=== PATIENT | male | born 1960 | race Caucasian/White ===

== ENCOUNTER 2023-12-25 18:00 | Emergency (ER) | payer SELFPAY ==
[2023-12-25 18:01] VITALS: BMI 25.4
[2023-12-25 18:22] VITALS: BP 187/110
[2023-12-25 18:26] VITALS: BP 171/105
[2023-12-25 18:30] VITALS: BP 171/105
[2023-12-25 18:51] LABS: % Basophils 0.4 % (0-2); % Eosinophils 1.4 % (0-6); % Immature Granulocytes 0.4 % (0-0.5); % Monocytes 9.4 % (1.7-9.3); % Neutrophils 78.4 % (42.2-75.2); Absolute Eosinophils 0.1 10^3/uL (0-0.7); Absolute Lymphocytes 0.8 10^3/uL (1.2-3.4); Absolute Monocytes 0.8 10^3/uL (0.1-0.6); Absolute Neutrophils 6.6 10^3/uL (1.4-6.5); Hematocrit 37.9 % (39.0-52.0); Hemoglobin 13.5 g/dL (13.0-18.0); Mean Corp Hgb Conc. 35.6 g/dL (33.0-37.0); Mean Corpuscular Hgb 30.8 pg (27.0-31.0); Mean Corpuscular Volume 86.3 fL (80.0-94.0); Mean Platelet Volume 8.8 fL (7.4-10.4); Nucleated Red Blood Cells % 0 % (-); Platelet Count 248 10^3/uL (130-400); Red Blood Cell Count 4.39 10^6/uL (4.70-6.10); Red Cell Dist. Width 13.4 % (11.5-14.5); White Blood Cell Count 8.3 10^3/uL (4.8-10.8)
[2023-12-25 19:00] VITALS: BP 171/97
[2023-12-25 19:04] LABS: ALT (SGPT) < 10 U/L (0-50); AST (SGOT) 20 U/L (17-59); Albumin 4.4 g/dl (3.5-5.0); Alkaline Phosphatase 73 U/L (38-126); Blood Urea Nitrogen 14 mg/dl (9-20); Calcium 9.8 mg/dl (8.4-10.2); Carbon Dioxide 23 mmol/L (22-30); Chloride 106 mmol/L (98-107); Estimated Creatinine Clearance 105 ml/min; Glucose 103 mg/dl (70-99); Potassium 3.8 mmol/L (3.5-5.1); Sodium 138 mmol/L (135-145); eGFR > 60.00
--- NOTE | 2023-12-25 19:15 | ED.GENMED ---
History of Present Illness
General
Chief Complaint: Failure to Thrive
Source: patient and ambulance crew
Exam Limitations: none
Time Seen by Provider: 12/25/23 19:00
Nursing documentation reviewed up to this point in time: agreed with
Travel History
Have you had any contact with someone who has COVID-19?: No
Do you have any symptoms of coronavirus? Fever > 100 degrees, chills, cough, shortness of breath, sore throat, loss of taste or smell, muscle aches, or headache?: No
History of Present Illness
History of Present Illness:
63 yo male presents to the emergency department c/o an episode of explosive diarrhea. He is concerned his girlfriend gave him something to cause the diarrhea. He has had muscle aches and spasms for the past month.
Past History
Past History
ED Past Medical History: Arrthythmia (PAF), HTN, Other (Parkinson's disease) and Other (chronic back pain)
ED Past Surgical History: Orthopedic ([id number] fusion, right shoulder rotator cuff repair June 2018)
Patient has exhibited threatening behavior?: No
Social History
Tobacco: Non-smoker
Alcohol: None
Drug: None
Personal:
Living: alone
Employment: Employed
Family History
Family History: Hypertension and Other (Father with pancreatic cancer mother with Parkinson's)
Review of Systems
Review of Systems
Allergies reviewed?: Yes
All Other Systems: Not applicable
Constitutional: Reports no symptoms; Denies fever
EENT: Reports no symptoms
Respiratory: Reports no symptoms
Cardiac: Reports no symptoms
ABD/GI: Reports diarrhea; Denies abdominal pain or vomiting
: Reports no symptoms
Musculoskeletal: Reports muscle pain
Skin: Reports no symptoms
Neurological: Reports no symptoms
Endocrine: Reports no symptoms
Hematologic/Lymphatic: Reports no symptoms
Psychiatric: Reports no symptoms
Phy Exam
Physical Exam
Physical Exam:
Physical Exam
General: no apparent distress, afebrile
Neck: supple. no meningeal signs. normal posterior pharynx
Heart: s1/s2 regular rate and rhythm, no murmur. equal radial
pulses.
HEENT: Pupils equal round reactive to light, EOMI
Lungs: no acute respiratory distress. clear bilaterally
Abdomen: normal bowel sounds. not tender. no CVAT
Neuro: alert and oriented. no focal neurological deficits cranial nerves II through XII intact
Skin: no rash
Psychiatric: well kept. interactive and cooperative
Extremities: no edema. no calf tenderness. negative homans. good distal pulses
Course
Orders/Labs/Results
Orders:
Orders
12/25/23 18:44
Complete Blood Count/With Diff Urgent
Comprehensive Metabolic Panel Urgent
Abnormal Lab Results
12/25/23
18:44
RBC 4.39 L 10^6/uL
(4.70-6.10)
Hct 37.9 L %
(39.0-52.0)
Absolute Neuts (auto) 6.6 H 10^3/uL
(1.4-6.5)
Absolute Lymphs (auto) 0.8 L 10^3/uL
(1.2-3.4)
Absolute Monos (auto) 0.8 H 10^3/uL
(0.1-0.6)
Neutrophils % 78.4 H %
(42.2-75.2)
Lymphocytes % 10.0 L %
(20.5-51.1)
Monocytes % 9.4 H %
(1.7-9.3)
Glucose 103 H mg/dl
(70-99)
12/25/23 18:44
12/25/23 18:44
Vital Signs
Initial and Last Documented VS:
Initial Vital Signs
Pulse Resp BP
75 22 187/110
12/25/23 18:22 12/25/23 18:22 12/25/23 18:22
Last Documented Vital Signs
Pulse Resp BP Pulse Ox
71 18 171/97 95
12/25/23 19:15 12/25/23 19:15 12/25/23 19:00 12/25/23 18:26
MDM/Problems Addressed
Differential Diagnosis Includes:
infectious diarrhea, electrolyte disturbance
MDM/Problems Addressed:
63-year-old male with diarrhea, at baseline from Parkinson's. Vital signs stable. Stable for discharge. Follow-up with primary care and GI.
Chronic conditions affecting care: Neurological disorder (Parkinson's)
Acute Exacerbation and/or Progression of Chronic Illness: Neurological disorder (Parkinson's)
*Pulse Oximetry
Patient hypoxic: no
*EKG
Interpreted by ED Provider?: NA
*Telecommunications Support Interpretation
Rate: Telecommunications Support- N/A
*Critical Care Note
Total Time (30-74mins, 75-104mins- exclusive of procedures): Not Applicable
Data Reviewed
Review of Other/Old Records Reveals: Labs
Source: records (Prior kidney function normal from 10/11/2022)
Patient Management
Social determinants of health affecting care: Living situation
Escalation/DeEscalation of care consider admission/obs:
Admit not indicated
ED Attending Note
-
Portions of this chart may have been created with voice recognition software.� Occasional wrong word or��sound alike� substitutions may have occurred due to the inherent limitations of voice recognition software.
Discharge Plan
Departure
Patient Disposition: Home (Routine Discharge)
Date of Disposition: 12/25/23
Time of Disposition: 19:56
Patient with high blood pressure during this ER visit?: Yes
Condition: Good
Discharge Problem:
Diarrhea, HTN (hypertension)
Instructions: Diarrhea, Adult ED, BLOOD PRESSURE
Prescriptions:
No Action
carbidopa-levodopa 50-200 mg tablet extended release
1 tab PO DAILY@0000
carbidopa-levodopa 25-100 mg tablet
3 tab PO TID@0600,0900,1200
carbidopa-levodopa 25-100 mg tablet
3 tab PO TID@1500,1800,2100
pramipexole 0.75 mg tablet
0.75 mg PO TID@0000,0600,1500
acetaminophen 325 mg Tablet
650 mg PO Q4HPRN PRN (Reason: mild pain/MARIE/temp> 100.4F) Qty: 10 0RF
sotalol 80 mg Tablet
80 mg PO BID Qty: 60 0RF
Referrals:
Marilee Summers MD [Active] - Call in 1-3 days for appt
Loco Stratton MD [Family Provider] - Call in 1-3 days for appt
Interventions
Interventions:
*Risk Screen - Suicide Last Done: 12/25/23 18:32
*General Assessment Last Done: 12/25/23 18:32
*Neglect/Abuse Screening Last Done: 12/25/23 18:32
ED- Fall Risk Assessment Last Done: 12/25/23 19:18
*ED COVID-19 Vaccine History Last Done: 12/25/23 21:13
*Nursing Disposition Last Done: 12/25/23 21:13
Discharge Date and Time
Discharge Date/Time: 12/25/23 21:16
Print Language: DJIBOUTIAN
== END 2023-12-25 21:16 | disposition home or self-care (01) ==
LOC: EMR 18:00
PROVIDERS: Emergency Medicine; EMERGENCY PHYSICIAN Emergency Medicine; FAMILY PHYSICIAN Family Medicine
DX: R19.7 Diarrhea, unspecified (principal); I10 Essential (primary) hypertension; I48.0 Paroxysmal atrial fibrillation; G20.A1 Parkinson's disease without dyskinesia, without mention of fluctuations; G89.29 Other chronic pain; Z82.49 Family history of ischemic heart disease and other diseases of the circulatory system
CPT/HCPCS: 99283; 80053; 85025

== ENCOUNTER 2025-02-10 22:29 | Emergency (ER) | payer OTHER, SELFPAY ==
[2025-02-10 22:30] VITALS: BP 168/111
--- NOTE | 2025-02-11 00:33 | EDRN ---
Pt continuing to refuse care and to be seen at this time by ED provider. Pt assisted with calling [employer]. Upon [employer] arrival, pt wheeled out to car and informed needs to be able to independently get into the car since he is going back to his facility.
Pt unable to stand up from wheelchair and get into the car. Due to safety of pt and situation, pt brought back into waiting room to be seen. pulmonologist/intensivist notified.
--- NOTE | 2025-02-11 03:46 | ED.GENMED ---
History of Present Illness
General
Chief Complaint: Gait Dysfunction
Source: patient
Exam Limitations: none
Time Seen by Provider: 02/11/25 03:39
History of Present Illness
History of Present Illness:
See MDM
Past History
Past History
ED Past Medical History: Arrthythmia (PAF), HTN, Other (Parkinson's disease) and Other (chronic back pain)
ED Past Surgical History: Orthopedic ([id number] fusion, right shoulder rotator cuff repair June 2018)
Patient has exhibited threatening behavior?: No
Social History
Tobacco: Non-smoker
Alcohol: None
Drug: None
Personal:
Living: alone
Employment: Employed
Family History
Family History: Hypertension and Other (Father with pancreatic cancer mother with Parkinson's)
Phy Exam
Physical Exam
Physical Exam:
See MDM
Course
Vital Signs
Initial and Last Documented VS:
Initial Vital Signs
Temp Pulse Resp BP Pulse Ox
99.2 F 102 20 168/111 98
02/10/25 22:30 02/10/25 22:30 02/10/25 22:30 02/10/25 22:30 02/10/25 22:30
Last Documented Vital Signs
Temp Pulse Resp BP Pulse Ox
99.2 F 85 26 168/111 96
02/10/25 22:30 02/11/25 03:30 02/11/25 03:30 02/10/25 22:30 02/11/25 03:47
MDM/Problems Addressed
Differential Diagnosis Includes:
Note:
CHIEF COMPLAINT(S)
Weakness and inability to stand.
HISTORY OF PRESENT ILLNESS
The patient is a 64-year-old male with a history of Parkinsons disease who was found outside a pizza place exhibiting shaking. EMS was called, and the patient was brought to the emergency department. He was previously cleared to go home but was
unable to get into an [employer] due to weakness, as he could not stand independently. Upon arrival in the emergency department, he was found to be in a deep sleep and was non-responsive initially. Attempts to wake him were made, and he was very
soft-spoken when responding. There is no report of pain or other symptoms elicited during the interaction.
Patient is refusing any interventions such as imaging, urinalysis or lab work
CHRONIC MEDICAL CONDITIONS SIGNIFICANTLY AFFECTING CARE
Chronic conditions affecting care: Parkinsons disease.
PHYSICAL EXAM
General: Well appearing and non-toxic. No evidence of injury
HEENT: protecting airway
Neck: appears supple
CV: No evidence of cyanosis
Resp: No accessory muscle use
Abd: Non-distended
Extremities: No deformities
Neuro: alert. Initially deeply asleep and non-responsive. Later, awake and very soft-spoken.
Psych: Normal affect
Skin: Intact
PLAN
Observation and consideration for follow-up if weakness persists or other symptoms develop.
DIFFERENTIAL DIAGNOSIS
The Differential Diagnosis includes, in no particular order and is not limited to:
- Parkinsons disease exacerbation
- Orthostatic hypotension
- Urinary tract infection
- Dehydration
- Electrolyte imbalance
- Sedation or intoxication
- Stroke or transient ischemic attack
- Hypoglycemia
- Infection such as pneumonia
- Medication side effect or non-compliance
CARE-UPDATE
02/11/25 - 05:17
The patient is increasingly alert and expresses a desire to be discharged, indicating comfort with returning home. Patient consistently refuses additional testing and reaffirms feeling ready and comfortable with going home.
Disposition:
SUMMARY OF ENCOUNTER
The patient, a 64-year-old male with a history of Parkinsons disease, was seen in the emergency department due to weakness and inability to stand, initially found outside a pizza place exhibiting shaking. Upon arrival, he was in a deep sleep and
non-responsive but later became awake and soft-spoken. The main concern was a possible Parkinsons disease flare, and he declined further testing, expressing comfort in going home.
DISPOSITION
The patient was discharged home after he expressed capability for decision-making and declined further testing.
ASSESSMENT
Suspected Parkinsons disease exacerbation with no acute intervention required at this time.
PLAN
Observation and consideration for follow-up if weakness persists or other symptoms develop.
MEDICAL DECISION MAKING
1. Number & Complexity of Problems: Chronic conditions affecting care include Parkinsons disease. Differential diagnoses considered include Parkinsons disease exacerbation, orthostatic hypotension, dehydration, and infection among others.
2. Risk: Consideration of admission/observation was made due to complexity/risk. However, outpatient management is appropriate based on reassuring work-up, stable vitals, symptom control, and follow-up reliability.
PATHOLOGIES TO CONSIDER
Stroke or transient ischemic attack, electrolyte imbalance, medication side effect, or non-compliance.
*Pulse Oximetry
SaO2: 96
Oxygen Mode of Delivery: Room air
Patient hypoxic: no
*Critical Care Note
Total Time (30-74mins, 75-104mins- exclusive of procedures): Not Applicable
ED Attending Note
-
Portions of this chart may have been created with voice recognition software.� Occasional wrong word or��sound alike� substitutions may have occurred due to the inherent limitations of voice recognition software.
Discharge Plan
Departure
Patient Disposition: Home (Routine Discharge)
Date of Disposition: 02/11/25
Time of Disposition: 05:18
Patient with high blood pressure during this ER visit?: Yes
Discharge Problem:
Parkinson's disease
Prescriptions:
No Action
carbidopa-levodopa 50-200 mg tablet extended release
1 tab PO DAILY@0000
carbidopa-levodopa 25-100 mg tablet
3 tab PO TID@0600,0900,1200
carbidopa-levodopa 25-100 mg tablet
3 tab PO TID@1500,1800,2100
pramipexole 0.75 mg tablet
0.75 mg PO TID@0000,0600,1500
acetaminophen 325 mg Tablet
650 mg PO Q4HPRN PRN (Reason: mild pain/MARIE/temp> 100.4F) Qty: 10 0RF
sotalol 80 mg Tablet
80 mg PO BID Qty: 60 0RF
Referrals:
UNKNOWN - PT DOES,NOT KNOW [Family Provider]
Activity Restrictions/Additional Instructions:
Please return for any worsening symptoms.
You may return at any time if you have further concerns.
Please follow up with your doctor at the first available appointment, preferably this week.
Thank you for choosing [facility].
Interventions
Interventions:
*Risk Screen - Suicide Last Done: 02/10/25 22:30
*General Assessment Last Done: 02/10/25 22:30
*Neglect/Abuse Screening Last Done: 02/10/25 22:30
*ED COVID-19 Vaccine History Last Done: 02/10/25 22:30
ED-Musculoskeletal Assessment Last Done: 02/11/25 03:33
ED- Neurological Assessment Last Done: 02/11/25 03:33
ED Swallowing Screen Last Done: 02/11/25 03:33
Discharge Date and Time
Print Language: MOLDOVAN
== END 2025-02-11 05:53 | disposition home or self-care (01) ==
LOC: EMR 22:29
PROVIDERS: EMERGENCY PHYSICIAN Student in an Organized Health Care Education/Training Program
DX: G20.A1 Parkinson's disease without dyskinesia, without mention of fluctuations (principal); I10 Essential (primary) hypertension
CPT/HCPCS: 99283

== ENCOUNTER 2025-06-22 22:46 | Inpatient (IN) | payer OTHER, SELFPAY ==
[2025-06-22 18:47] VITALS: BP 116/90; BMI 27.1
[2025-06-22 18:48] VITALS: BP 116/90
[2025-06-22 19:00] VITALS: BP 136/95
[2025-06-22 19:45] LABS: Hematocrit 41.5 % (39.0-52.0); Hemoglobin 13.6 g/dL (13.0-18.0); Mean Corp Hgb Conc. 32.8 g/dL (33.0-37.0); Mean Corpuscular Volume 91.6 fL (80.0-94.0); Nucleated Red Blood Cells % 0 % (-); Platelet Count 307 10^3/uL (130-400); Red Cell Dist. Width 13.5 % (11.5-14.5)
[2025-06-22 19:47] LABS: Urine Character Clear (Clear)
[2025-06-22] MEDS: NSS 1000 IV ×2 (19:47→21:00)
[2025-06-22 19:57] LABS: Urine Squamous Cell 0-2 /LPF (Few)
[2025-06-22 19:58] LABS: Urine Red Blood Cell 0-2 /HPF (0-2)
[2025-06-22 20:00] VITALS: BP 123/102
[2025-06-22 20:08] LABS: ALT (SGPT) 11 U/L (0-50); AST (SGOT) 74 U/L (17-59); Albumin 3.3 g/dl (3.5-5.0); Alkaline Phosphatase 78 U/L (38-126); Blood Urea Nitrogen 39 mg/dl (9-20); Calcium 8.5 mg/dl (8.4-10.2); Carbon Dioxide 32 mmol/L (22-30); Chloride 100 mmol/L (98-107); Estimated Creatinine Clearance 70 ml/min; Glucose 138 mg/dl (70-99); Potassium 3.6 mmol/L (3.5-5.1); Sodium 139 mmol/L (135-145); Total Protein 6.2 g/dl (6.3-8.2); eGFR > 60.00
--- NOTE | 2025-06-22 20:51 | ED.GENMED ---
History of Present Illness
General
Chief Complaint: Change in Mental Status
Source: patient
Time Seen by Provider: 06/22/25 19:12
History of Present Illness
History of Present Illness:
Note:
CHIEF COMPLAINT(S)
Shivering and altered mental status.
HISTORY OF PRESENT ILLNESS
The patient is a 64-year-old male with a past medical history of Parkinsons disease. His friends last checked on him on Sunday, at which time he reported feeling cold and shivering, leading him to lie down on the bathroom floor. He has been in
this position since Sunday, and today is Sunday, which is when his friends found him.
Upon arrival at the hospital, EMS noted that the patient was hypoxic, but he appeared stable after being administered two liters of oxygen. The patients alertness fluctuates�he opens his eyes, is alert, but does not respond to questions and does not
follow commands. There is severe skin breakdown with necrotic areas on several body parts due to prolonged immobility, including the right maxillary region, the left sub-xyphoid area, right lower chest wall, sacral area, and knees. There is also a
presence of stool from a large sacral wound.
PAST MEDICAL AND SURGICAL HISTORY
The patient has a confirmed history of Parkinsons disease.
PHYSICAL EXAM
General: Alert, no acute distress, but does not respond to questions.
Skin: Significant skin breakdown with necrosis in the right maxillary region, left sub-xyphoid area, right lower chest wall, both knees, and a large sacral area.
Eyes, Ears, Nose, Mouth, and Throat: Not specified in detail, but alert with eyes open.
Cardiovascular: Heart rate regular at 80 beats per minute. Blood pressure measured at 136/37.
Respiratory: Non-labored respirations, oxygen saturation improved with supplemental oxygen.
Neurological: Does not follow commands for neurologic assessment. Limbs are somewhat rigid, consistent with a history of Parkinson�s disease.
Gastrointestinal: Presence of stool stemming from sacral wound.
PROBLEM LIST
Acute Problems:
- Altered mental status
- Hypoxia
- Skin breakdown with necrosis multiple sites
Chronic Problems:
- Parkinson�s disease
PLAN
- Monitor vital signs closely.
- Obtain a rectal temperature.
- Assess and manage skin breakdown and necrotic areas.
- Continue supplemental oxygen as needed.
- Consult neurology for Parkinsons disease management and assess rigidity.
- Consider wound care consultation.
DIFFERENTIAL DIAGNOSIS
The Differential Diagnosis includes, in no particular order and is not limited to:
- Sepsis secondary to necrotic skin lesions
- Parkinson�s disease complications
- Urinary tract infection
- Pneumonia
- Stroke
- Delirium secondary to infection or metabolic imbalances
- Dehydration or electrolyte imbalance
- Hypothermia from prolonged exposure to a cold surface
- Hypoglycemia
- Medication side effects
CARE-UPDATE
06/22/25 - 19:29
The patient has a history of Parkinsons disease, atrial fibrillation, hypertension, and bilateral knee replacements. The discharge summary from June 2020 indicates that the patient was documented as DNR at that time. Additionally, the medication
regimen included carbidopa/levodopa and sotalol.
EKG
My independent EKG interpretation is:
- Rhythm: Normal
- Heart Rate: 81 bpm
- Aspen: Normal
- Intervals: Normal
- ST Segment/T Wave: No acute ischemic changes
Disposition:
SUMMARY OF ENCOUNTER
The patient is a 64-year-old male with a history of Parkinsons disease, presenting after being found on the ground with altered mental status. Upon evaluation, the patient has multiple skin lesions and a chronic sacral wound, along with other wounds
on the face, chest, knees, and upper back. Initial labs show mild rhabdomyolysis with a creatine phosphokinase (CPK) level of 1,295. Despite mild encephalopathy evidenced by volume loss on CT scan, vital signs are hemodynamically stable. A
urinalysis shows 1+ leukocyte esterase, 1+ blood, and many bacteria suggestive of a potential urinary tract infection. The patient�s temperature is slightly elevated at 99�F. Intravenous antibiotics were administered and blood cultures were sent to
address possible infections.
DISPOSITION
Admit.
ASSESSMENT
-Multiple skin lesions with possible infection.
-Mild rhabdomyolysis.
-Volume loss shown on CT indicating atrophy, potentially related to Parkinson�s and aging.
-Suspected urinary tract infection with bacterial presence in urinalysis.
-Potential encephalopathy related to metabolic imbalance or infection.
EMERGENCY TREATMENTS ADMINISTERED
Initiated intravenous antibiotics to cover for potential infections.
INDEPENDENT REVIEW OF LABS AND INTERPRETATION OF TESTS
My independent review of CPK shows mild elevation at 1,295 indicating rhabdomyolysis.
My independent review of basic metabolic panel indicates normal sodium, potassium, and glucose levels, and a normal creatinine.
My independent review of urinalysis shows 1+ leukocyte esterase, 1+ blood, and many bacteria, consistent with a potential urinary tract infection.
MEDICATION RECONCILIATION
Antibiotics administered intravenously for potential infections.
MEDICAL DECISION MAKING
-Number and Complexity of Problems Addressed: Chronic conditions affecting care include Parkinson�s disease, rhabdomyolysis, possible urinary tract infection, and skin lesions with potential sepsis. Differential diagnosis considered included: sepsis
secondary to necrotic skin lesions, Parkinson�s disease complications, urinary tract infection, pneumonia, stroke, delirium secondary to infection or metabolic imbalances, dehydration or electrolyte imbalance, hypothermia from prolonged exposure to
a cold surface, hypoglycemia, and medication side effects.
-Data:
Category 1
My independent interpretation of CT scan shows diffuse cerebral and cerebellar volume loss, consistent with encephalopathy but without acute intracranial hemorrhage.
Category 2
Clinical information was obtained from an independent historian regarding the patients time on the ground and prior medical conditions.
-Risk:
The decision to admit the patient was based on the risk of complications and morbidity related to potential infections, rhabdomyolysis, and possible encephalopathy.
DIAGNOSIS
-Rhabdomyolysis (ICD-10: M62.82)
-Urinary tract infection (ICD-10: N39.0)
-Cerebral atrophy (ICD-10: G31.1)
-Skin lesions (ICD-10: L98.9)
-Parkinson�s disease (ICD-10: G20)
Past History
Past History
ED Past Medical History: Arrthythmia (PAF), HTN, Other (Parkinson's disease) and Other (chronic back pain)
ED Past Surgical History: Orthopedic ([id number] fusion, right shoulder rotator cuff repair June 2018)
Patient has exhibited threatening behavior?: No
Social History
Tobacco: Non-smoker
Alcohol: None
Drug: None
Personal:
Living: alone
Employment: Employed
Family History
Family History: Hypertension and Other (Father with pancreatic cancer mother with Parkinson's)
Phy Exam
Physical Exam
Physical Exam:
.
Course
Orders/Labs/Results
Orders:
Orders
06/22/25 19:13
Electrocardiogram (*1) Urgent
Reason for Study: Fatigue / Weakness
CT Head W/o Iv Contrast Urgent
Comment:
Reason For Exam: found down, possible fall
EKG- Treatment ONCE
06/22/25 19:28
CPK [Creatine Phosphokinase] Urgent
Complete Blood Count/With Diff Urgent
Comprehensive Metabolic Panel Urgent
06/22/25 19:29
Urinalysis Reflex To Culture Urgent
Date Specimen was Collected: 06/22/25
Time Specimen was Collected: 19:28
Urine Microscopic Reflex Cult Urgent
Urine Culture Urgent
ALESHA Source: U
Specimen Description:
Date Specimen was Collected: 06/22/25
Time Specimen was Collected: 19:28
06/22/25 19:44
Venous Blood Gas Urgent
%Oxygen/Room Air: RA
0.9% Sodium Chloride 1000 ml [Nss] 1,000 ml IV BOLUS
06/22/25 20:11
0.9% Sodium Chloride 1000 ml [Nss] 1,000 ml IV BOLUS
06/22/25 21:18
CefTRIAXone [Rocephin] 1,000 mg IV NOW STA
Vancomycin [Vancocin] 2,000 mg 0.9% Sodium Chloride 500 ml [Nss] 500 ml IV NOW
06/22/25 21:30
Lactic Acid Q4H
Comment: CANCEL 2nd LACTIC ACID IF 1st LACTIC ACID IS LESS THAN 2
Blood Culture Q30M
ALESHA Source: Blood/Venous
Specimen Description:
06/22/25 22:00
Blood Culture Q30M
ALESHA Source: Blood/Venous
Specimen Description:
06/23/25 01:30
Lactic Acid Q4H
Comment: CANCEL 2nd LACTIC ACID IF 1st LACTIC ACID IS LESS THAN 2
Abnormal Lab Results
06/22/25 06/22/25
19:28 19:29
WBC 14.4 H 10^3/uL
(4.8-10.8)
RBC 4.53 L 10^6/uL
(4.70-6.10)
MCHC 32.8 L g/dL
(33.0-37.0)
Abs Immat Gran (auto) 0.1 H 10^3/uL
(0-0.05)
Absolute Neuts (auto) 11.8 H 10^3/uL
(1.4-6.5)
Absolute Lymphs (auto) 0.7 L 10^3/uL
(1.2-3.4)
Absolute Monos (auto) 1.5 H 10^3/uL
(0.1-0.6)
Immature Gran % 0.8 H %
(0-0.5)
Neutrophils % 81.8 H %
(42.2-75.2)
Lymphocytes % 4.8 L %
(20.5-51.1)
Monocytes % 10.2 H %
(1.7-9.3)
Carbon Dioxide 32 H mmol/L
(22-30)
BUN 39 H mg/dl
(9-20)
Glucose 138 H mg/dl
(70-99)
Total Bilirubin 2.5 H mg/dl
(0.2-1.3)
AST 74 H U/L
(17-59)
Creatine Kinase 1295 H U/L
(55-170)
Total Protein 6.2 L g/dl
(6.3-8.2)
Albumin 3.3 L g/dl
(3.5-5.0)
Urine Ketones 2+ A
(Negative)
Ur Occult Blood Reflex 1+ A
(Negative)
Urine Urobilinogen 3+ A
(Neg - 1+)
Leukocyte Esterase Rfl 1+ A
(Negative)
Urine Bacteria (Reflex) Many A
(Negative)
Urine Albumin (Reflex) 2+ A
(Neg - Trace)
06/22/25 19:28
06/22/25 19:28
Vital Signs
Initial and Last Documented VS:
Initial Vital Signs
Temp Pulse Resp BP Pulse Ox
97.5 F 82 14 116/90 97
06/22/25 18:47 06/22/25 18:47 06/22/25 18:47 06/22/25 18:47 06/22/25 18:47
Last Documented Vital Signs
Temp Pulse Resp BP Pulse Ox
97.5 F 78 14 123/102 98
06/22/25 18:47 06/22/25 20:15 06/22/25 20:15 06/22/25 20:00 06/22/25 20:52
*Pulse Oximetry
SaO2: 98
Oxygen Mode of Delivery: Room air
Patient hypoxic: no
*Large Animal Husbandry Technician Interpretation
Rate: normal
Interpretation: normal
Rhythm: sinus
*Critical Care Note
Total Time (30-74mins, 75-104mins- exclusive of procedures): 45 minutes
Update Note
Update Note:
ED Attending Note
-
Portions of this chart may have been created with voice recognition software.� Occasional wrong word or��sound alike� substitutions may have occurred due to the inherent limitations of voice recognition software.
Discharge Plan
Departure
Patient Disposition: Admit
Date of Disposition: 06/22/25
Time of Disposition: 21:02
Admit to: Telemetry
Presentation/result/management discussed w/ accepting MD/DO: Hospitalist
Discharge Problem:
Rhabdomyolysis, Decubitus ulcer of sacral area, Parkinson's disease, Skin breakdown
Prescriptions:
No Action
carbidopa-levodopa 25-100 mg tablet
3 tab PO TID@0600,0900,1200
carbidopa-levodopa 25-100 mg tablet
3 tab PO TID@1500,1800,2100
hydralazine 25 mg Tablet
25 mg PO TIDPRN PRN (Reason: blood pressure)
losartan 25 mg Tablet
25 mg PO DAILY
metoprolol succinate [Toprol XL] 25 mg Tablet Extended Release 24 Hr
25 mg PO DAILY
Referrals:
Loco Lynch MD [Family Provider, Family Practice]
Interventions
Interventions:
*Risk Screen - Suicide Last Done: 06/22/25 18:47
*ED- Fall Risk Assessment Last Done: 06/22/25 18:47
*ED COVID-19 Vaccine History Last Done: 06/22/25 18:47
*ED Influenza Vaccine History Last Done: 06/22/25 18:47
ED- Neurological Assessment Last Done: 06/22/25 18:47
Discharge Date and Time
Print Language: MONGOLIAN
--- NOTE | 2025-06-22 22:19 | HPS.HSE ---
Family Physician
-
Family Physician: Loco Lynch
Chief Complaint
-
found down
History of Present Illness
64-year-old male past medical history of Parkinson's disease, frequent falls, hypertension, paroxysmal atrial fibrillation status post ablation, chronic back pain, presenting with being found down on the ground. His friends last checked on 2 days
ago at which time he was cold and shivering leading to him lying down on the bathroom floor. He has been in this position for the past 2 days and was found today by his friends.
He was noted to be hypoxic and started on 2 L oxygen. Patient's alertness has been fluctuating and he opens his eyes and is alert but does not respond to questions and does not follow commands. He has several skin breakdown areas all over his body
including right maxillary region, left subxiphoid area, right lower chest wall and sacral area and knees. He also has a large sacral wound.
Medical History
Past Medical History
Past Medical History: Reports Other (Parkinson's disease, frequent falls, hypertension, paroxysmal atrial fibrillation status post ablation, chronic back pain)
Past Surgical History: Reports None
Social History
Unable to obtain full social history at this time due to: Patient Non-verbal
Family History
Family History: Not pertinent
Allergies / Home Medications
Allergies reflects when Allergies were last updated in [facility].
Home Medications with original date entered in [facility]
Allergy/Medication List:
Allergies
Allergy/AdvReac Type Severity Reaction Status Date / Time
aspartame Allergy Afib Verified 12/25/23 18:26
Home Medications
carbidopa 25 mg-levodopa 100 mg tablet 3 tab PO TID@0600,0900,1200 Neurological Condition 06/30/22
carbidopa 25 mg-levodopa 100 mg tablet 3 tab PO TID@1500,1800,2100 Neurological Condition 06/30/22
hydralazine 25 mg tablet 25 mg PO TIDPRN PRN blood pressure 06/22/25
losartan 25 mg tablet 25 mg PO DAILY Blood Pressure 06/22/25
metoprolol succinate 25 mg tablet,extended release 24 hr (Toprol XL) 25 mg PO DAILY Heart Disease/Condition 06/22/25
Review of Systems
-
Unable to obtain full review of systems at this time due to: Patient Non-verbal
A 12 point ROS was completed and negative except as noted: No
Physical Exam
Vital Signs
Vital Signs
Temp Pulse Resp BP Pulse Ox
97.5 F 78 14 123/102 98
06/22/25 18:47 06/22/25 20:15 06/22/25 20:15 06/22/25 20:00 06/22/25 20:52
Physical Exam
General: Well Developed, Well Nourished and No Apparent Distress
HEENT: NormoCephalic, Moist mucous membranes and Atraumatic
Respiratory: Clear
Cardiac: S1/S2 and Regular Rhythm; No Murmur or Rub
GI: Soft, Non Tender, Non Distended and Normal Bowel Sounds; No Organomegaly
Rectal: Deferred by Provider
Musculoskeletal: No Clubbing, No Cyanosis and No Edema
Skin: No Rash
Neuro: Nonfocal/grossly intact
Laboratory Results
-
06/22/25 19:28
06/22/25 19:28
Laboratory Results
Total Bilirubin 2.5 mg/dl (0.2-1.3) H 06/22/25 19:28
AST 74 U/L (17-59) H 06/22/25 19:28
ALT 11 U/L (0-50) 06/22/25 19:28
Alkaline Phosphatase 78 U/L (38-126) 06/22/25 19:28
Data Reviewed
-
Lab Data: Labs Reviewed by me
Old Records: Reviewed
Impression/Plan
-
IMPRESSION:
PLAN:
# Mild acute rhabdomyolysis
-Leukocytosis
-CK 1300
- IV fluids
- Continue carbidopa levodopa
# Acute metabolic encephalopathy possibly from skin infection/wounds
-Slightly opens his eyes to sternal rubbing but does not follow commands
-CT head showed no acute abnormality
- Urinalysis abnormal
- Blood cultures pending
-VBG pending
# Significant skin breakdown over right maxillary region, left xiphoid area, right lower chest wall, sacral area and knees
# Sacral decubitus ulcer
- Vancomycin/zosyn empirically
- Wound care consulted
# Mild hypoxemia unclear etiology rule out pneumonia
-Desatted to 80% so placed on 2 L oxygen
- Check chest x-ray
- Check COVID and influenza
Parkinson's disease
Frequent falls
Essential hypertension
- Continue hydralazine, losartan when able
Paroxysmal atrial fibrillation status post ablation
- Continue metoprolol when able
Chronic back pain
Full code
DVT prophylaxis heparin
Regular diet when able
[2025-06-22] MEDS: ROCEPHIN 1000 MG IV (22:22)
[2025-06-22 22:26] LABS: Venous Blood Gas B.E. 2.6 mmol/L (-4 to +4); Venous Blood Gas O2 Sat % 91.2 %
[2025-06-22] MEDS: VANCOCIN 540 MG IV (22:42)
[2025-06-22 22:53] LABS: COVID-19 Antigen Negative (Negative)
[2025-06-22 23:00] VITALS: BP 128/92
[2025-06-23] VITALS (7 sets, daily range): BP systolic 110–137; BP diastolic 68–85; BMI 27.1
[2025-06-23] MEDS: NSS 1000 IV ×2 (00:59→11:55)
[2025-06-23] MEDS: OFIRMEV 100 IV ×3 (01:11→20:59)
[2025-06-23] MEDS: ZOSYN 50 IV ×3 (01:32→11:39)
--- NOTE | 2025-06-23 02:17 | PTCARENOTE ---
Pt admitted to rm 337-1 and was pulled over from stretcher to bed. Pt malodorous, pt cleaned w/ bathing wipes. Wounds noted on L upper back, L second toe, R nose, L heel, sacrum, b/l knees, chest, and R cheek. Preventative foams placed for b/l
elbows and L heel. Pt uncooperative but opening eyes to tactile stimuli and mumbling. Temp 102.2 axillary, pt packed w/ ice. [employer] notified, IV tylenol ordered (see OCT). +1 L pedal edema, trace R pedal edema, and +1 L elbow edema present. Placed on
tele #7, NSR. Legs elevated on pillow and pt made Q2T. Bed alarm placed for safety. Plan of care ongoing.
[2025-06-23 05:52] LABS: Hematocrit 36.6 % (39.0-52.0); Hemoglobin 11.4 g/dL (13.0-18.0); Mean Corp Hgb Conc. 31.1 g/dL (33.0-37.0); Mean Corpuscular Volume 93.8 fL (80.0-94.0); Nucleated Red Blood Cells % 0 % (-); Platelet Count 263 10^3/uL (130-400); Red Cell Dist. Width 13.6 % (11.5-14.5)
[2025-06-23 06:09] LABS: ALT (SGPT) 16 U/L (0-50); AST (SGOT) 60 U/L (17-59); Albumin 2.5 g/dl (3.5-5.0); Alkaline Phosphatase 62 U/L (38-126); Blood Urea Nitrogen 29 mg/dl (9-20); Calcium 8.0 mg/dl (8.4-10.2); Carbon Dioxide 26 mmol/L (22-30); Chloride 109 mmol/L (98-107); Estimated Creatinine Clearance 79 ml/min; Glucose 104 mg/dl (70-99); Potassium 3.3 mmol/L (3.5-5.1); Sodium 137 mmol/L (135-145); Total Protein 5.3 g/dl (6.3-8.2); eGFR > 60.00
--- NOTE | 2025-06-23 08:05 | PHA.VAN.IN ---
Assessment
- Assessment
Renal Function: Appears similar to baseline
Concomitant Antimicrobials: piperacillin/tazobactam
AUC Dosing Plan
- Dosing Variables
Dosing Weight (kg): 74
Dosing CrCl (ml/min): 79
Vd coefficient (L/kg): 0.7
- Empiric Dosing
Initial / Loading Dose: 2000mg - 06/22 22:42
Maintenance Regimen: Vanc 750mg Q12H starting at 1800
Estimated AUC (mcg*h/mL): 428
Estimated Peak (mcg*h/mL): 25.5
Estimated Trough (mcg/ml): 11.8
Estimated Half Life (H): 9.9
- Monitoring
No levels ordered at this time: follow BUN & SCR trend
Pharmacokinetics Vancomycin I
- -
Patient Age: 64
Patient Sex: Male
Vancomycin Day #: 1
Indication: Skin And Soft Tissue
Requesting Provider: Dr. Talavera
Pertinent Antimicrobial Allergies:
no pertinent antibiotic allergies
Height / Weight:
Height 5 ft 5 in
Actual Weight 74 kg
Pertinent Past Medical History: Parkinson's
- Vital Signs / Lab Results
Temp Pulse Resp BP Pulse Ox
99.8 F 69 16 130/78 98
06/23/25 07:59 06/23/25 07:59 06/23/25 07:59 06/23/25 07:59 06/23/25 07:59
Lab Results - Hematology
06/22/25 06/23/25
19:28 05:18
WBC 14.4 H 11.7 H
Lab Results - Chemistry
06/22/25 06/23/25
19:28 05:18
BUN 39 H 29 H
Creatinine 0.9 0.8
Estimated Creat Clear 70 79
Albumin 3.3 L 2.5 L
06/22/25
22:02
Lactic Acid 1.2
Lab Results - Urine
06/22/25
19:29
Urine Nitrite (Reflex) Negative
Leukocyte Esterase Rfl 1+ A
Urine WBC (Reflex) 3-5
Ur Squamous Epith Cells 0-2
Urine Bacteria (Reflex) Many A
Microbiology Results
06/22/25 22:28 Influenza Types A & B (JOSEF) - Final
Nasal Swab Negative for Influenza A & B, NAAT
Negative results must be combined with clinical observations
and patient history.
Nucleic Acid Amplification test (NAAT)performed on the
[employer] platform.
--- NOTE | 2025-06-23 08:55 | W.PN.HOSP.TC ---
Today's Communication/Plan
-
Antibiotics. Workup in progress.
Assessment / Plan
Assessment / Plan
Physical exam:
General: Acutely ill. Toxic appearance
HEENT: Normocephalic, Atraumatic and Dry Mucous Membranes
Respiratory: Clear to Auscultation; Negative Wheezes, Rales or Rhonchi
Cardiac: Regular Rhythm and S1/S2
GI: Soft, Nontender and Nondistended
Musculoskeletal: No joint effusions
Skin: Large sacral decubitus ulcer appears necrotic and infected, multiple other ulcers on his trunk, right maxillary region, left xiphoid area, right lower chest wall, and knees.
Neuro: Semi-obtunded, does not respond to verbal stimuli, does withdraw to painful stimuli
Psych: Lack of judgment and insight
A/P:
Febrile illness--> suspected sepsis present on admission with endorgan damage with hyperbilirubinemia (bilirubin at 2.5):
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
Blood cultures
ID consult
Plan for LP
General surgery consult for sacral ulcer evaluation--> plan for MRI sacral area
Continue broad-spectrum antibiotics but adjust to IV ceftriaxone vancomycin and ampicillin.
Add IV acyclovir
Continue IV fluids and keep n.p.o. until mental status improves. Speech therapy eval as well.
Discussed with friend over the phone (Ajay Christopher)-now trying to get in touch with any family members or POA if present but friend tells me that he is and he is stranged with his son who lives in [place].
Acute toxic-metabolic encephalopathy:
Likely multifactorial, infection, Parkinson's, and medications
Monitor mental status
Currently protecting airway but monitor respiratory status closely
Hypoxia:
Improved
Chest x-ray no acute chest pathology
Monitor respiratory status closely
Hypokalemia:
Replete IV and trend
Rhabdomyolysis:
On IV fluid
CPK 1295 upon admission
Will trend in a.m.
Paroxysmal A-fib:
Not on anticoagulation prior to admission
History of ablation in the past
On rate control with beta-blockers as outpatient
Will add IV Lopressor as needed for heart rate sustained more than 120s
Advanced Parkinson's disease:
Neurology consult
Started on rotigotine transdermal until able to take oral meds
DVT prophylaxis:
SCDs
CODE STATUS:
Full code
Total time spent on today's encounter was 57 minutes which included time spent in counseling the patient/family regarding diagnosis and treatment plan as listed above, goals of care, and symptom management. Case was discussed with nursing staff,
specialists, and care coordinators/case management. All labs and imaging personally reviewed by me. Remainder the time spent in detailed review of previous records, lab data, imaging, and other medical provider documentation.
Anticipated Discharge: > 48 hours
Subjective/Interval History
-
Date of Service: June 23, 2025
Patient encephalopathic. He is febrile, Tmax 102.2 Fahrenheit.
Objective Data
-
Labs:
Laboratory Results
06/23/25
05:18
WBC 11.7 H
Hgb 11.4 L
Hct 36.6 L
Plt Count 263
Sodium 137
Potassium 3.3 L
Chloride 109 H
Carbon Dioxide 26
BUN 29 H
Creatinine 0.8
Glucose 104 H
Calcium 8.0 L
Total Bilirubin 2.1 H
AST 60 H
ALT 16
Alkaline Phosphatase 62
Vital Signs:
Vital Signs
Temp Pulse Resp BP Pulse Ox
99.8 F 69 16 130/78 98
06/23/25 07:59 06/23/25 07:59 06/23/25 07:59 06/23/25 07:59 06/23/25 07:59
[2025-06-23] MEDS: HEPARIN 5000 UNITS SC (08:58)
--- NOTE | 2025-06-23 11:36 | CON.ID ---
Consultation
-
Date/Time Consultation Requested: 06/23/25 11:18
Date/Time Consultation Performed: 06/23/25 11:36
Requesting Provider: Dr Dick
Performing Provider: Dr Monterroso
Reason for Consultation: fever
Chief Complaint / Past History
Chief Complaint
fever
History of Present Illness
Mr Liao is a 64 year old male with history of Parkinson's disease with frequent falls who presented here yesterday after being found down. History is obtained by chart review. Friends report that they checked on him two days ago, he was cold and
shivering and laid down on the bathroom floor. He was found by his friends two days later in the same position and EMS was called
Since arrival here he has been febrile to 102.2, bp stable, pulse 60-80, RR in the teens, wbc initially 14.4 now 11.7, hgb 13.6, plt 307, Left shift was present, sodium 139, cr 0.9, lactic acid 1.2, t bili 2.5, ast 74, alt 11, alk phos 78, CK 1295,
UA 3-5 wbc/hpf, covid ag negative, CXR: no evidence of pneumonia, CT head without IV contrast no evidence of ICH, influenza negative, blood cultures x2 in progress, urine culture pending.
Past History
Additional Past Medical History:
(Parkinson's disease, frequent falls, hypertension, paroxysmal atrial fibrillation status post ablation, chronic back pain)
Past Surgical History: None
Allergy History:
aspartame Allergy (Verified 12/25/23 18:26)
Afib
Medications Reviewed: Yes
Social History
Employment: Other (unable to obtain social history)
Family History
Family History: Not Pertinent
Review of Systems
Review of Systems
unable to obtain due to the condition of the patient
Vital Signs
Temp Pulse Resp BP Pulse Ox
100.4 F H 73 18 130/77 99
06/23/25 10:55 06/23/25 10:55 06/23/25 10:55 06/23/25 10:55 06/23/25 10:55
Physical Exam
Physical Exam
Constitutional: No Acute Distress
Cardiovascular: Regular Rate and S1/S2; Negative Murmur or Rub
Pulmonary: Clear and Symmetric; Negative Wheezes, Rales or Rhonchi
Gastrointestinal: Soft, Non Tender, Non Distended and Normal Bowel Sounds
Skin: Warm and Dry; Negative Rash or Jaundice
Wound: Other (Eschars: right maxillary, left subxiphoid, right lower chest wall, bilateral knees; there is a deep tissue injury over the sacral region with strong odor)
Neurological: Other (stiff neck, nonresponsive); Negative Awake or Alert
Lab / Diagnostic Study Results
06/23/25 05:18
06/23/25 05:18
Abs Immat Gran (auto) 0.1 10^3/uL (0-0.05) H 06/23/25 05:18
Absolute Neuts (auto) 9.4 10^3/uL (1.4-6.5) H 06/23/25 05:18
Absolute Lymphs (auto) 0.7 10^3/uL (1.2-3.4) L 06/23/25 05:18
Absolute Monos (auto) 1.1 10^3/uL (0.1-0.6) H 06/23/25 05:18
Absolute Basos (auto) 0.0 10^3/uL (0-0.2) 06/23/25 05:18
Immature Gran % 0.8 % (0-0.5) H 06/23/25 05:18
Neutrophils % 80.4 % (42.2-75.2) H 06/23/25 05:18
Lymphocytes % 6.1 % (20.5-51.1) L 06/23/25 05:18
Monocytes % 9.2 % (1.7-9.3) 06/23/25 05:18
Eosinophils % 3.2 % (0-6) 06/23/25 05:18
Basophils % 0.3 % (0-2) 06/23/25 05:18
Lactic Acid 1.2 mmol/L (0.7-2.0) 06/22/25 22:02
Ur Squamous Epith Cells 0-2 /LPF (Few) 06/22/25 19:29
Microbiology Results
Micro:
06/22/25 22:28 Influenza Types A & B (JOSEF) - Final
Nasal Swab Negative for Influenza A & B, NAAT
Negative results must be combined with clinical observations
and patient history.
Nucleic Acid Amplification test (NAAT)performed on the
[employer] platform.
06/22/25 22:02 Blood Culture - Pending
Blood/Venous
06/22/25 22:02 Blood Culture - Pending
Blood/Venous
06/22/25 19:29 Urine Culture - Pending
Urine
Assessment / Plan
Fever
Rhabdomyolysis
Encephalopathy - suspect toxic metabolic
- blood cultures x2 are in progress
- ua bland, urine culture is in progress
- covid and influenza screens are negative
- obtain LP with cell count, culture, protein, glucose - if there is significant leukocytosis then will add on meningitis panel
- continue vancomycin, add ceftriaxone, ampicillin, acycylovir for present; hold zosyn for present
- agree with surgical consult to debride the sacral wound
--- NOTE | 2025-06-23 11:50 | CON.NEURO4 ---
Addendum entered and electronically signed by Allen Brown MD 06/23/25 13:33:
Studies independently reviewed.
I have personally examined the patient. I reviewed and agree with the VALUE STREAM LEADER's Note.
My addenda:
Not awake, not alert, not interactive. No acute distress.
Speech mute.
Follows no requests. No tremor. Does not withdraw from painful stimuli or respond to verbal stimulation.
Extra-ocular movements slow rolling eye movements, negative doll's eyes. Eyes respond to bright light slowly bilaterally
Face appears symmetric. Hearing unable to assess
No spontaneous limb movements
Neck: full ROM.
Chest: no dyspnea
Heart: no JVD
Ext: (-) Clubbing, (-) Cyanosis, (-) Edema
IMPRESSIONS/RECOMMENDATIONS:
Abrupt onset of change in mental status. Likely that the patient became frozen with Parkinson's disease and subsequently was unable to move. Current status is most likely secondary to inadequate dopamine levels and possible underlying toxic
metabolic encephalopathy.
Initiate rotigotine patch 1 mg with increase over time
Attempt to obtain records from [facility]
Consider restart of palliative care, consult case management
We will follow LP results
Will continue to follow patient.
Original Note:
Consultation - Neurology 4
-
CONSULTING PHYSICIAN: Allen Brown MD
REFERRING PHYSICIAN: Hospitalists/Dr. Dick
DICTATED BY: LARRY Camara
DATE/TIME OF REQUEST: 06/23/25
DATE/TIME OF CONSULTATION: 06/23/25
Reason for Consultation: Encephalopathy
History of Present Illness:
This is a 64-year-old male who has presented to the hospital on 06/22/25 with report of chills and being found on the ground. Patient's friends report that three days ago on 06/20/25 the patient was reporting being cold and was shivering. They
checked on him again yesterday (06/22/25) and found him lying on his bathroom floor.. On EMS arrival he was hypoxic and somewhat alert but not answering questions or following commands. He was also noted to have several areas of skin
breakdown/pressure ulcers. CT head was obtained on arrival and is negative for any acute abnormalities. WBC count was 14.4 on arrival, CK 1295. Temperature was elevated to 102.2 overnight. Patient has remained minimally responsive prompting
Neurology evaluation. He is unable to participate in conversation and this information is obtained from medical records. He has advanced Parkinson's disease was was previously followed as an outpatient by Dr. Hernandez until 2022, it is unclear if he
still follows anywhere currently. He was encourage to get a deep brain stimulator in 2022 due to severity of his PD symptoms but he failed to complete the workup to undergo this procedure. He was also recently on palliative care but ultimately
discharged himself from their care.
Past Medical History: Parkinson's disease, paroxysmal Afib (s/p ablation, not on OAC), HTN, frequent falls, multiple concussions, insomnia, chronic back pain
Surgical History: Cardiac ablation, lumbar laminectomy/fusion, R shoulder arthroscopy, b/l knee replacement
Family History: Father- Parkinson's disease
Social History: No alcohol, tobacco, or illicit drug use.
Allergies: Aspartame.
Home Medications:
Review of Symptoms:
Per the HPI. I am unable to obtain a complete review of systems�because of patient's inability to provide history.
Physical Exam:
The patient is febrile, abdomen is nondistended, breathing is unlabored on oxygen via nasal cannula, skin is warm and dry, +3 BLE edema. Scattered wounds/scabbing.
Neurologic Examination:
The patient is unresponsive. He is unable to follow commands or answer questions appropriately. There is no verbal response. On cranial nerve assessment, pupils are 3 mm bilateral, round and reactive to light and accommodation. Gaze is midline, ANIL
visual mcconnell and EOMs. There is no apparent facial asymmetry. ANIL hearing. ANIL tongue. To pain, 0/5 in all extremities. No spontaneous movement. Increased tone in bilateral lower extremities. ANIL drift. No involuntary movement noted. Deep tendon
reflexes are 1+ bilateral upper and lower extremities and Babinski is absent bilaterally. ANIL sensation, double simultaneous, and coordination.
Lab Results: See below.
Neuro Imaging:
1. CT Head 06/22/25: No CT evidence for acute intracranial hemorrhage or transcortical infarct. Mild diffuse cerebral and cerebellar volume loss. Mild periventricular white matter leukoaraiosis in the frontal and parietal lobes
Differentials for the patient's presentation include:
1. Altered mental status; likely toxic metabolic encephalopathy in the setting of fever, rhabdomyolysis, and absence of receiving usual extensive dosing of carbidopa-levodopa.
2. Afib s/p ablation, not on anticoagulation.
Patient has the following risk factors for their symptoms: Advanced PD not getting medications, fever
Recommendations:
-Start rotigotine 1mg transdermal until usual home PD medications can be resumed.
-Infectious workup per ID.
-Goal normothermia.
-If patient fails to improve, will consider MRI brain imaging.
-Neurological checks.
-DVT prophylaxis.
Discussed patient care with: Dr. Brown, nursing staff
Vital Signs and Labs
-
Vital Signs and Labs:
Vital Signs
Temp Pulse Resp BP Pulse Ox
100.4 F H 73 18 130/77 99
06/23/25 10:55 06/23/25 10:55 06/23/25 10:55 06/23/25 10:55 06/23/25 10:55
Lab Results
06/23/25 05:18
06/23/25 05:18
Sodium 137 mmol/L (135-145) 06/23/25 05:18
Potassium 3.3 mmol/L (3.5-5.1) L 06/23/25 05:18
BUN 29 mg/dl (9-20) H 06/23/25 05:18
Glucose 104 mg/dl (70-99) H 06/23/25 05:18
Calcium 8.0 mg/dl (8.4-10.2) L 06/23/25 05:18
Medications
-
Active Medications
Generic Name Dose Route Start Last Admin
Trade Name Freq PRN Reason Stop Dose Admin
Heparin Sodium 5,000 units 06/23/25 08:00 06/23/25 08:58
Heparin 5,000 Units/Ml 1 Ml Vial SC 07/21/25 07:59 5,000 units
Q12 CECI Administration
Sodium Chloride 1,000 mls @ 100 mls/hr 06/23/25 00:39 06/23/25 11:55
Nss IV 1,000 mls
.Q10H CECI Administration
Piperacillin Sod/Tazobactam Sod 3.375 gram in 50 mls @ 100 mls/hr 06/23/25 01:00 06/23/25 11:39
Zosyn IV 50 mls
Q6 CECI Administration
Vancomycin HCl 750 mg in 150 mls @ 150 mls/hr 06/23/25 18:00
Vancocin IV
Q12H CECI
Protocol
Sodium Chloride 0 flush 06/23/25 01:00
Sodium Chloride 0.9% (Flush) Syringe IV 07/21/25 00:59
PER PROTOCOL CECI
Home Medications
�Medication �Instructions �Recorded
carbidopa 25 mg-levodopa 100 mg 3 tab PO TID@0600,0900,1200 06/30/22
tablet Neurological Condition
carbidopa 25 mg-levodopa 100 mg 3 tab PO TID@1500,1800,2100 06/30/22
tablet Neurological Condition
hydralazine 25 mg tablet 25 mg PO TIDPRN PRN blood pressure 06/22/25
losartan 25 mg tablet 25 mg PO DAILY Blood Pressure 06/22/25
metoprolol succinate 25 mg 25 mg PO DAILY Heart 06/22/25
tablet,extended release 24 hr Disease/Condition
(Toprol XL)
--- NOTE | 2025-06-23 12:55 | WOUNDNOTE ---
[facility] RN note: Patient admitted with Rhabdomyolysis, decubitus ulcer of sacrum.
See H&P for complete history.
PMH: The patient is a 64-year-old male with a past medical history of Parkinson's disease. His friends last checked on him on Sunday, at which time he reported feeling cold and shivering, leading him to lie down on the bathroom floor. He has been
in this position since Sunday, and today is Sunday, which is when his friends found him. Afib-ablation, HTN and ambulatory dysfunction.
Wound Location and type/assessment: Patient admitted with: multiple pressure injuries from lying on bathroom floor for a few days. Patient is unresponsive at this time. With assist of nurse Rubia, turned patient to sides. Sacrum with large DTI vs
Unstageable PI, foul odor and moderate drainage. L upper back abrasion with patch of weepy serous drainage. R cheek with unstageable PI. R chest with dry abrasion, black necrotic. L dorsal toes with few scattered dry scabs, suspect abrasions. B/L
knee with PI's, R unstageable with brown dry eschar. L knee with evolving DTI, shallow light maroon intact skin. R lateral heel with DTI, dark maroon, no drainage. L heel intact.
Appetite: NPO.
Pressure redistribution devices in place: Recommend Air mattress, turning schedule and pillow under calves.
Plan: Local wound care applied to Sacrum. Foams changed on heels. Applied Vaseline to R cheek and chest eschar. Discussed wounds with Dr. Dick, plan is for I&D and Surgical consult. Goals of care to be discussed with family.
Will confirm orders with hospitalist and updated nurse Barkley. Updated care plan and will follow as needed.
Note to case management of equipment requested for discharge: TBD.
Recommend follow up at wound care center upon discharge.
[2025-06-23] MEDS: ZOVIRAX INJECTION 264.8 MG IV ×2 (13:17→20:41)
--- NOTE | 2025-06-23 13:26 | CON.GS ---
Medical History
-
Chief Complaint: Found down
History of Present Illness:
Patient is a 64 yo M with a PMH of Parkinson's, HTN, A-fib (no anticoagulation), and chronic back pain who presents with fevers, frequent falls and being found down at home. Patient is unable to provide a history at this time. Low normal reaction
with the encounter. Reported to be found at home by friends. Has multiple wounds of various healing stages and at various sites across his body. He was found to have a sacral decubitus ulcer prompting consultation to general surgery.
Past Medical History
Past Medical History: Arrhythmias (A-fib), HTN and Psychiatric (Parkinson's disease)
Past Surgical History: None
Social History
Tobacco: Other (Unable to obtain)
Alcohol: Other (Unable to obtain)
Drug: Other (Unable to obtain from)
Family History
Family History: Unable to Obtain
Allergies / Home Medications
Allergy/AdvReac Type Severity Reaction Status Date / Time
aspartame Allergy Afib Verified 12/25/23 18:26
�Medication �Instructions �Recorded �Confirmed �Type
carbidopa 25 mg-levodopa 100 mg 3 tab PO TID@0600,0900,1200 06/30/22 06/22/25 History
tablet Neurological Condition
carbidopa 25 mg-levodopa 100 mg 3 tab PO TID@1500,1800,2100 06/30/22 06/22/25 History
tablet Neurological Condition
hydralazine 25 mg tablet 25 mg PO TIDPRN PRN blood pressure 06/22/25 06/22/25 History
losartan 25 mg tablet 25 mg PO DAILY Blood Pressure 06/22/25 06/22/25 History
metoprolol succinate 25 mg 25 mg PO DAILY Heart 06/22/25 06/22/25 History
tablet,extended release 24 hr Disease/Condition
(Toprol XL)
Review of Systems
-
A 10 point review of systems was completed, and was negative except as per HPI.
Physical Exam
Vital Signs
Temp Pulse Resp BP Pulse Ox
100.4 F H 73 18 130/77 99
06/23/25 10:55 06/23/25 10:55 06/23/25 10:55 06/23/25 10:55 06/23/25 10:55
06/22/25 06/23/25 06/24/25
06:59 06:59 06:59
Actual Weight 74 kg
Body Mass Index (BMI) 27.1
Lab Results
06/23/25 05:18
06/23/25 05:18
WBC 11.7 10^3/uL (4.8-10.8) H 06/23/25 05:18
Hgb 11.4 g/dL (13.0-18.0) L 06/23/25 05:18
Hct 36.6 % (39.0-52.0) L 06/23/25 05:18
Plt Count 263 10^3/uL (130-400) 06/23/25 05:18
Abs Immat Gran (auto) 0.1 10^3/uL (0-0.05) H 06/23/25 05:18
Neutrophils % 80.4 % (42.2-75.2) H 06/23/25 05:18
Physical Exam
General: No Apparent Distress
Respiratory: Non Labored Respirations
Cardiac: Irregular Rhythm
GI: Soft, Non Tender and Non Distended
Skin: Other (Scattered wounds across his entire body of various healing stages, large 8 x 10 cm sacral decubitus ulcer, dry, reactive surrounding blanching erythema, no significant palpable fluctuance, no drainage, minimal tenderness)
Neuro: Sedated
Data Reviewed
-
Radiology: Image Personally Visualized and interpreted and Report Reviewed by me
CT Scan: Report Reviewed by me
Labs: Labs Reviewed by me
Old Records: Reviewed
Assessment / Plan
-
Patient is a 64 yo M p/w sepsis of unknown origin after being found down at home
Differential remains broad; work-up on-going. Large sacral decubitus ulcer with overlying dry gangrene and necrosis of the skin and subcutaneous tissues, unable to fully stage. No clearly palpable fluctuance underlying. Unable to have a
meaningful conversation with the patient. No clear DPOA on file. Per report he has been previously on hospice and was removed by his (since ). No immediate family members on file, only listed contacts are friends. Will need to
obtain legal documentation of a DPOA and define goals of care. Would obtain an MRI of the pelvis to rule out osteomyelitis. Continue with antibiotic treatment and local wound care. Please call when we have legally determined a medical decision
maker and defined goals of care.
-- MRI pelvis to r/o osteomyelitis
-- Local wound care
-- Antibiotics: ID consulted
-- Obtain documentation of a DPOA and define goals of care, please call when discerned so that we can appropriately consent
[2025-06-23 13:56] LABS: INR 1.51; PT 18.4 Sec (11.4-14.6)
[2025-06-23] MEDS: KCL 270 MEQ IV (14:26)
[2025-06-23] MEDS: AMPICILLIN 108 MG IV ×3 (14:35→22:24)
[2025-06-23] MEDS: NEUPRO 1 MG TRANSDERM (14:35)
[2025-06-23] MEDS: STERILE WATER FOR INJECTION 20 ML IV (15:32)
[2025-06-23] MEDS: ROCEPHIN 2000 MG IV (15:32)
--- NOTE | 2025-06-23 17:45 | PTCARENOTE ---
Communicated with Dr Guzman during shift, who was consulted for sacral decubitus. Patient unable to give consent to procedures at this time due to mentation. [facility] staff called inquiring about patient's order for LP, informed [facility] of patient being
unable to sign consent. Communicated with Christine Robbins supportive employment case manager regarding who the POA of the patient is and the need for consent for images/procedures. call placed to both contacts who had no information to give. The individuals listed stated
that the patient's is very sick, but the individuals were unable to give the name of the per case management. Patient was seen by wound nurse, neurology, surgery, and infectious disease during shift. Safety and comfort measures maintained
during shift. call bel within reach.
[2025-06-23] MEDS: VANCOCIN 150 IV (18:02)
[2025-06-24] VITALS (8 sets, daily range): BP systolic 95–174; BP diastolic 59–96; PULSE 82; O2SAT 99
[2025-06-24] MEDS: STERILE WATER FOR INJECTION 20 ML IV (02:15)
[2025-06-24] MEDS: ROCEPHIN 2000 MG IV (02:18)
[2025-06-24] MEDS: AMPICILLIN 108 MG IV ×3 (02:34→11:01)
--- NOTE | 2025-06-24 03:32 | PTCARENOTE ---
Pt awake and answering questions appropriately. AAOx3. Unable to recall what brought him in to the hospital. When asked who his contact is, pt stated Ajay Christopher. Emergency contact number listed already. Pt asked about who his POA is and stated he
did not know but that his chief security officer has his advanced directive. Pt denies being . When pt asked who he lived with he stated 'a girl that's a friend'.
Pt denies pain. Call devi within reach and bed alarm still in place. Plan of care explained to pt.
[2025-06-24] MEDS: ZOVIRAX INJECTION 264.8 MG IV (04:37)
[2025-06-24] MEDS: NSS 1000 IV (04:41)
[2025-06-24 05:49] LABS: Hematocrit 35.1 % (39.0-52.0); Hemoglobin 11.4 g/dL (13.0-18.0); Mean Corp Hgb Conc. 32.5 g/dL (33.0-37.0); Mean Corpuscular Volume 91.2 fL (80.0-94.0); Nucleated Red Blood Cells % 0 % (-); Platelet Count 249 10^3/uL (130-400); Red Cell Dist. Width 13.7 % (11.5-14.5)
[2025-06-24] MEDS: VANCOCIN 150 IV ×2 (05:50→17:03)
[2025-06-24 05:55] LABS: INR 1.43; PT 17.7 Sec (11.4-14.6)
[2025-06-24 06:21] LABS: ALT (SGPT) 25 U/L (0-50); AST (SGOT) 49 U/L (17-59); Albumin 2.3 g/dl (3.5-5.0); Alkaline Phosphatase 59 U/L (38-126); Blood Urea Nitrogen 21 mg/dl (9-20); Calcium 7.9 mg/dl (8.4-10.2); Carbon Dioxide 25 mmol/L (22-30); Chloride 114 mmol/L (98-107); Estimated Creatinine Clearance 79 ml/min; Glucose 91 mg/dl (70-99); Potassium 3.6 mmol/L (3.5-5.1); Sodium 140 mmol/L (135-145); Total Protein 5.0 g/dl (6.3-8.2); eGFR > 60.00
[2025-06-24] MEDS: NEUPRO 1 MG TRANSDERM (08:50)
[2025-06-24] MEDS: DAKIN'S SOLUTION 0.125% 1/4 STRENGTH 473 ML TOPICAL (08:54)
--- NOTE | 2025-06-24 09:56 | W.PN.NEURO.1 ---
Today's Communication / Plan
-
Advance rotigotine patch dosing from 1 mg to 2 mg
When able to take by mouth, restart carbidopa/levodopa dosing at outpatient levels
Would consider return to palliative care
Neuro Assessment/Plan
Assessment
Abrupt onset of change in mental status. Likely that the patient became frozen with Parkinson's disease and subsequently was unable to move.
Current status is most likely secondary to inadequate dopamine levels and possible underlying toxic metabolic encephalopathy. Current improvement suggests that therapies are being of benefit.
Plan
Advance rotigotine patch dosing from 1 mg to 2 mg
When able to take by mouth, restart carbidopa/levodopa dosing at outpatient levels
Would consider return to palliative care
Will follow peripherally.
Subjective/Objective
Subjective Data
Date of Service: June 24, 2025
Patient unable to provide his own medical history
Objective Data
Vital Signs
Temp Pulse Resp BP Pulse Ox
37.2 C 71 17 119/66 99
06/24/25 07:00 06/24/25 07:00 06/24/25 07:00 06/24/25 07:00 06/24/25 07:45
Lab Results
06/24/25 05:21
06/24/25 05:21
PT 17.7 Sec (11.4-14.6) H 06/24/25 05:21
INR 1.43 06/24/25 05:21
Sodium 140 mmol/L (135-145) 06/24/25 05:21
Potassium 3.6 mmol/L (3.5-5.1) 06/24/25 05:21
BUN 21 mg/dl (9-20) H 06/24/25 05:21
Glucose 91 mg/dl (70-99) 06/24/25 05:21
Calcium 7.9 mg/dl (8.4-10.2) L 06/24/25 05:21
Patient Allergies
aspartame Allergy (Verified 12/25/23 18:26)
Afib
Review of Systems
-
Unable to obtain full review of systems at this time due to: Lethargy
History Source: Patient
All other systems: Reviewed and negative
Physical Exam
-
General: No Apparent Distress and Appears Stated Age
Eyes: Round OU, [place] Conjunctivae and No Ptosis
HEENT: Anicteric and Moist Mucous Membranes
Neck: Full Range of Motion
Respiratory: No Dyspnea
Cardiac: No JVD
GI: Non-distended
Skin: Unremarkable
Extremities: No Clubbing, No Cyanosis and No Edema
Psych: Negative Intact Judgement/Insight
Extended Neurological Exam
Mood & Affect: Mood Unremarkable; Negative Affect Unremarkable (Flat)
Attention Span & Concentration: Awake, Interactive, Closes Eyes after Stimulation (Instantly), Unable to Perform 2 Step Request and Other (Severe difficulty with single step requests); Negative Alert
Memory: Able to Recall (location as hospital) and Unable to Recall Personal History
Tremor: Hand Tremor Absent and Head Tremor Absent
Involuntary Movement: None
Speech: Severely Reduced Output and Other (Low volume)
Cranial Nerve II: Left Eye: Unable to Assess Visual [place]
Cranial Nerve II: Right Eye: Unable to Assess Visual [place]
Cranial Nerve V: Facial Sensation: Unable to Assess
Cranial Nerve VII: Facial Symmetry: Normal Facial Symmetry
Cranial Nerve VIII: Hearing: Unremarkable Hearing to Normal Conversational Volume
Muscle Strength, Overall: Spontaneously Moves (All extremities, minimally, briefly)
Muscle Bulk & Tone: Bulk Unremarkable and Tone Unremarkable
Pronator Drift: Unable to Assess
Vibration Sensation: Unable to Assess
Coordination: Unable to Assess
Gait & Station: Unable to Assess
Data Reviewed
-
Labs: Report Reviewed
Reviewed with: Nurse and Patient
Old Records: Summarized
Past History
Past History
ED Past Medical History: Arrthythmia (PAF), HTN, Other (Parkinson's disease) and Other (chronic back pain)
ED Past Surgical History: Orthopedic ([id number] fusion, right shoulder rotator cuff repair June 2018)
Patient has exhibited threatening behavior?: No
Social History
Tobacco: Non-smoker
Alcohol: None
Drug: None
Personal:
Living: alone
Employment: Employed
Family History
Family History: Hypertension and Other (Father with pancreatic cancer mother with Parkinson's)
Medications
-
Medications:
Generic Name Dose Route Start Last Admin
Trade Name Freq PRN Reason Stop Dose Admin
Ceftriaxone Sodium 2,000 mg 06/23/25 14:00 06/24/25 02:18
Ceftriaxone 2,000 Mg/20 Ml Vial IV 2,000 mg
Q12H CECI Administration
Heparin Sodium 5,000 units 06/23/25 08:00 06/23/25 08:58
Heparin 5,000 Units/Ml 1 Ml Vial SC 07/21/25 07:59 5,000 units
On Hold: 06/23/25 13:34 Q12 CECI Administration
Sodium Chloride 1,000 mls @ 100 mls/hr 06/23/25 00:39 06/24/25 04:41
Nss IV 1,000 mls
.Q10H CECI Administration
Vancomycin HCl 750 mg in 150 mls @ 150 mls/hr 06/23/25 18:00 06/24/25 05:50
Vancocin IV 150 mls
Q12H CECI Administration
Protocol
Ampicillin Sodium 2,000 mg/ 108 mls @ 108 mls/hr 06/23/25 14:00 06/24/25 07:13
Sodium Chloride IV 108 mls
Q4H CECI Administration
Acyclovir Sodium 740 mg/ 264.8 mls @ 250 mls/hr 06/23/25 13:00 06/24/25 04:37
Sodium Chloride IV 07/03/25 12:59 264.8 mls
Q8H CECI Administration
Acetaminophen 1,000 mg in 100 mls @ 400 mls/hr 06/23/25 20:42 06/23/25 20:59
Ofirmev IV 06/24/25 20:41 100 mls
Q6HPRN PRN Administration
fever>100.4,mild pain,headache
Protocol
Metoprolol Tartrate 5 mg 06/23/25 14:00
Metoprolol 5 Mg/5 Ml Vial IV 07/21/25 13:59
Q6HPRN PRN
heart rate > 120
Rotigotine 1 mg 06/23/25 13:00 06/24/25 08:50
Rotigotine (Neupro) 1 Mg Patch TRANSDERM 07/21/25 12:59 1 mg
DAILY CECI Administration
Sodium Chloride 0 flush 06/23/25 01:00
Sodium Chloride 0.9% (Flush) Syringe IV 07/21/25 00:59
PER PROTOCOL CECI
Sodium Hypochlorite 0 ml 06/24/25 08:00 06/24/25 08:54
Dakin's Solution 0.125% (1/4 Strength) 473 Ml Bottle TOPICAL 07/22/25 07:59 473 ml
DAILY CECI Administration
Sterile Water 20 ml 06/23/25 14:00 06/24/25 02:15
Sterile Water For Injection 20 Ml Vial IV 07/21/25 13:59 20 ml
Q12H CECI Administration
--- NOTE | 2025-06-24 12:27 | W.PN.HOSP.TC ---
Addendum entered and electronically signed by Roberto Dick MD 06/24/25 14:27:
Non traumatic rhabdomyolysis
R cheek with unstageable PI
B/L knee with PI-->R knee unstageable. L knee with evolving DTI.
R lateral heel with DTI
Addendum entered and electronically signed by Roberto Dick MD 06/24/25 13:56:
I was able to speak with his [id number]. He is not aware of any POA and he has not spoken with and son for many decades. [id number] is involved in his medical issues but does not have POA. I asked about any CODE STATUS discussions
before and he mentions that he has been avoiding that and remains full code. Also noted per report that he signed out from palliative care/hospice before and at that time his girlfriend was intended to help out but that did not work out.
Addendum entered and electronically signed by Roberto Dick MD 06/24/25 13:14:
Bacteremia with Staphylococcus noted. Changed antibiotics around to IV Zosyn and vancomycin. Cancel LP.
Original Note:
Today's Communication/Plan
-
Antibiotics
Assessment / Plan
Assessment / Plan
Physical exam:
General: Acutely ill. Toxic appearance
HEENT: Normocephalic, Atraumatic and Dry Mucous Membranes
Respiratory: Clear to Auscultation; Negative Wheezes, Rales or Rhonchi
Cardiac: Regular Rhythm and S1/S2
GI: Soft, Nontender and Nondistended
Musculoskeletal: No joint effusions
Skin: Large sacral decubitus ulcer appears necrotic, multiple other ulcers on his trunk, right maxillary region, left xiphoid area, right lower chest wall, and knees.
Neuro: Lethargic, does respond now to verbal stimuli, moves spontaneously all 4 extremities
Psych: Lack of judgment and insight
A/P:
Febrile illness--> suspected sepsis present on admission with endorgan damage with hyperbilirubinemia (bilirubin at 2.5):
METROLOGY ENGINEER versus SSTI versus other
Blood cultures
ID consult
Plan for LP
General surgery consult for sacral ulcer evaluation--> plan for MRI sacral area
Continue broad-spectrum antibiotics but adjust to IV ceftriaxone vancomycin and ampicillin.
Cont IV acyclovir
Continue IV fluids and keep n.p.o. until mental status improves. Speech therapy eval as well.
Discussed with friend over the phone yesterday (Ajay Christopher)-now trying to get in touch with any family members or POA if present but friend tells me that he is and he is strange from his son who lives in [place].
PT OT SP eval
Acute toxic-metabolic encephalopathy:
Likely multifactorial, infection, Parkinson's, and medications
Monitor mental status
Currently protecting airway but monitor respiratory status closely
Hypoxia:
Improved
Chest x-ray no acute chest pathology
Monitor respiratory status closely
Hypokalemia:
Repleted IV and trend
Rhabdomyolysis:
On IV fluid
CPK 1295 upon admission--> 492 today
Paroxysmal A-fib:
Not on anticoagulation prior to admission
History of ablation in the past
On rate control with beta-blockers as outpatient
Will add IV Lopressor as needed for heart rate sustained more than 120s
Advanced Parkinson's disease:
Neurology consult
Started on rotigotine transdermal until able to take oral meds and increased doses
DVT prophylaxis:
SCDs
Restart heparin SQ
CODE STATUS:
Full code
Total time spent on today's encounter was 55 minutes which included time spent in counseling the patient/family regarding diagnosis and treatment plan as listed above, goals of care, and symptom management. Case was discussed with nursing staff,
specialists, and care coordinators/case management. All labs and imaging personally reviewed by me. Remainder the time spent in detailed review of previous records, lab data, imaging, and other medical provider documentation.
Anticipated Discharge: > 48 hours
Subjective/Interval History
-
Date of Service: June 24, 2025
Patient still encephalopathic/lethargic but does seem to be a little more alert and able to nod to some questions and follow some simple command. Afebrile
Objective Data
-
Labs:
Laboratory Results
06/24/25
05:21
WBC 11.8 H
Hgb 11.4 L
Hct 35.1 L
Plt Count 249
PT 17.7 H
INR 1.43
Sodium 140
Potassium 3.6
Chloride 114 H
Carbon Dioxide 25
BUN 21 H
Creatinine 0.8
Glucose 91
Calcium 7.9 L
Total Bilirubin 1.2
AST 49
ALT 25
Alkaline Phosphatase 59
Vital Signs:
Vital Signs
Temp Pulse Resp BP Pulse Ox
98.9 F 71 17 119/66 99
06/24/25 07:00 06/24/25 07:00 06/24/25 07:00 06/24/25 07:00 06/24/25 07:45
I&O
06/23/25 06/24/25 06/25/25
06:59 06:59 06:59
Intake Total 3700 / 3700
Output Total 550 / 550
Balance 3150 / 3150
--- NOTE | 2025-06-24 12:31 | W.PN.ID1 ---
Date of Service
Date of Service: June 24, 2025
Today's Communication
cancel LP, stop ceftriaxone, ampicillin, acycylovir
continue vancomycin restart zosyn
Assessment / Plan
Fever
Staphylococcal bacteremia
Rhabdomyolysis
Encephalopathy - suspect toxic metabolic
Sacral Decubitus Ulcer
- blood cultures x2 are in progress - one set with staphlococcus
- repeat blood cultures x2 today
- ua bland, urine culture is in progress
- covid and influenza screens are negative
- mental status improving with rotigotine patch; cancel LP, stop ceftriaxone, ampicillin, acycylovir
- continue vancomycin, restart zosyn
- appreciate surgical consult
- MRI pelvis is pending
Subjective / Review of Systems
fevers ongoing
bp stable
waking up and interacting briefly, answering yes/no questions appropriately, oriented to person and time
moves all extremities
Vital Signs / Physical Exam
Vital Signs
Vital Signs
Temp Pulse Resp BP Pulse Ox
98.5 F 74 18 124/73 98
06/24/25 11:00 06/24/25 11:00 06/24/25 11:00 06/24/25 11:00 06/24/25 11:00
Physical Exam
Constitutional: No Acute Distress
Cardiovascular: Regular Rate and S1/S2; Negative Murmur or Rub
Pulmonary: Clear and Symmetric; Negative Wheezes or Rales
Gastrointestinal: Soft, Non Tender, Non Distended and Normal Bowel Sounds
Skin: Warm and Dry; Negative Rash or Jaundice
Neurological: Awake (responding to yes/no questions, moves all extremities briefly)
Objective Data
Lab Data
Lab Results
06/24/25 05:21
06/24/25 05:21
PT 17.7 Sec (11.4-14.6) H 06/24/25 05:21
INR 1.43 06/24/25 05:21
Estimated Creat Clear 79 ml/min 06/24/25 05:21
Lactic Acid 1.2 mmol/L (0.7-2.0) 06/22/25 22:02
Total Bilirubin 1.2 mg/dl (0.2-1.3) 06/24/25 05:21
AST 49 U/L (17-59) 06/24/25 05:21
ALT 25 U/L (0-50) 06/24/25 05:21
Alkaline Phosphatase 59 U/L (38-126) 06/24/25 05:21
Most recent labs reviewed.
Micro Results:
06/22/25 22:02 Blood Culture - Preliminary
Blood/Venous Staphylococcus species
Gram Stain - Preliminary
06/22/25 19:29 Urine Culture - Final
Urine No Significant Growth
06/23/25 23:19 MRSA Screen - Pending
Nose
06/22/25 22:02 Blood Culture - Preliminary
Blood/Venous No Growth in 24 hours- Final report to follow
06/22/25 22:28 Influenza Types A & B (JOSEF) - Final
Nasal Swab Negative for Influenza A & B, NAAT
Negative results must be combined with clinical observations
and patient history.
Nucleic Acid Amplification test (NAAT)performed on the
[employer] platform.
--- NOTE | 2025-06-24 12:54 | PTOTSP ---
ST Acute Care Evaluation
Pt currently presents with clinical signs of mild oropharyngeal dysphagia characterized by prolonged bolus manipulation and propulsion posteriorly as well as fairly strong coughing responses s/p ingestion of sequential sips of thin liquids via straw
that is suspicious for airway invasion. Pt also exhibiting clinical signs of suspected esophageal dysfunction as evident by consistent aerophagia/eructation s/p ingestion of both solids and liquids.
Recommendations:
- Conservative PO diet initiation (given pt's waxing/waning mentation) of pureed solids and thin liquids with small single sips.
- Meds whole in puree; crush as needed.
- Aspiration and reflux precautions: 1:1 assistance for all PO intake; HOB upright for all PO intake and for 60 minutes after PO intake; alternate solids and liquids; check for oral clearance; d/c PO intake if pt's mentation declines.
- EAP SPECIALIST to f/u re: diet tolerance, re-assess pt's candidacy for further diet upgrades, and to determine if pt would benefit from an instrumental swallow study.
[2025-06-24] MEDS: NSS IV (13:10)
[2025-06-24] MEDS: ZOSYN 50 IV ×2 (13:39→21:06)
--- NOTE | 2025-06-24 13:45 | PHA.VAN.FU ---
Vancomycin Assessment / Plan
- Assessment
Renal Function: Stable
WBC's are: Stable
Concomitant Antimicrobials: piperacillin/tazobactam
- Dosing Plan
Continue: Vanc 750mg Q12H
- Monitoring Plan
No level(s) ordered at this time: consider levels in next few days
- Follow Up
Pharmacy will continue to follow.
Vancomycin Follow UP
- -
Patient Age: 64
Patient Sex: Male
Vancomycin Day #: 2
Indication: Skin And Soft Tissue
Requesting Provider: Dr. Talavera
Pertinent Antimicrobial Allergies:
no pertinent antibiotic allergies
Height / Weight:
Height 5 ft 5 in
Actual Weight 74 kg
Pertinent Past Medical History: Parkinson's
- Vital Signs / Lab Results
Temp Pulse Resp BP Pulse Ox
98.5 F 74 18 124/73 98
06/24/25 11:00 06/24/25 11:00 06/24/25 11:00 06/24/25 11:00 06/24/25 11:00
Lab Results - Hematology
06/22/25 06/23/25 06/24/25
19:28 05:18 05:21
WBC 14.4 H 11.7 H 11.8 H
Lab Results - Chemistry
06/22/25 06/23/25 06/24/25
19:28 05:18 05:21
BUN 39 H 29 H 21 H
Creatinine 0.9 0.8 0.8
Estimated Creat Clear 70 79 79
Albumin 3.3 L 2.5 L 2.3 L
06/22/25
22:02
Lactic Acid 1.2
Microbiology Results
06/22/25 22:02 Blood Culture - Preliminary
Blood/Venous Staphylococcus species
Gram Stain - Preliminary
06/22/25 19:29 Urine Culture - Final
Urine No Significant Growth
06/22/25 22:02 Blood Culture - Preliminary
Blood/Venous No Growth in 24 hours- Final report to follow
06/22/25 22:28 Influenza Types A & B (JOSEF) - Final
Nasal Swab Negative for Influenza A & B, NAAT
Negative results must be combined with clinical observations
and patient history.
Nucleic Acid Amplification test (NAAT)performed on the
[employer] platform.
--- NOTE | 2025-06-24 14:12 | PN.CDI ---
CDI
- -
CDI:
Physician Documentation Request
Admit Date: 06/22/25 22:46
Dear Doctor Kapil,
Per emergency room record pt found by friends on ground at home. Believed to be on bathroom floor from Sunday until Sunday when found.
Progress notes include a diagnosis of Rhabdomyolysis.
Please clarify the type/likely type of rhabdomyolysis
Traumatic
Non traumatic
Other
Use of terms such as suspected, likely, concern for, or probable (associated with a specific diagnosis that is being evaluated, monitored, or treated as if it exists) are acceptable and can be coded in the inpatient setting, when documented at the
time of discharge.
Thank you,
Tania Covarrubias RN BSN
CDI Specialist
tiger text
Please use your independent medical judgment in providing your response.
--- NOTE | 2025-06-24 14:15 | PN.CDI ---
CDI
- -
CDI:
Physician Documentation Request
Admit Date: 06/22/25 22:46
Dear Doctor Kapil,
08/23 WOCN note states ' R cheek with unstageable PI, foul odor and moderate drainage.... B/L knee with PI's, R unstageable with brown dry eschar. L knee iwth evolving DTI, shallow light maroon intact skin. R lateral heel with DTI, dark maroon, no
drainage...'
Physician documentation of the type and location of wounds is required for compliant documentation. Based on the above clinical findings and your assessment, please provide the following in your progress note:
1. Location of the ulcer/wound, including laterality.
2. Type (etiology) of ulcer/wound:
- Traumatic wound
- Pressure (decubitus) ulcer
- Other
Use of terms such as suspected, likely, concern for, or probable (associated with a specific diagnosis that is being evaluated, monitored, or treated as if it exists) are acceptable and can be coded in the inpatient setting, when documented at the
time of discharge.
Thank you,
Tania ARCHULETA
CDI Specialist
tiger text
Please use your independent medical judgment in providing your response.
*Source: National Pressure Ulcer Advisory Panel (NPUAP)
[2025-06-24] MEDS: COZAAR 25 MG PO (17:02)
[2025-06-24] MEDS: TOPROL XL 25 MG PO (17:02)
[2025-06-24] MEDS: SINEMET 25-100 3 TABLET PO ×2 (17:02→21:09)
[2025-06-24] MEDS: HEPARIN 5000 UNITS SC (21:06)
[2025-06-25 03:00] VITALS: BP 108/70
[2025-06-25] MEDS: ZOSYN 50 IV ×3 (03:03→13:05)
[2025-06-25 06:27] LABS: Hematocrit 36.3 % (39.0-52.0); Hemoglobin 11.6 g/dL (13.0-18.0); Mean Corp Hgb Conc. 32.0 g/dL (33.0-37.0); Mean Corpuscular Volume 91.4 fL (80.0-94.0); Nucleated Red Blood Cells % 0 % (-); Platelet Count 284 10^3/uL (130-400); Red Cell Dist. Width 13.8 % (11.5-14.5)
[2025-06-25] MEDS: SINEMET 25-100 3 TABLET PO ×6 (06:30→20:51)
[2025-06-25 06:57] LABS: Blood Urea Nitrogen 19 mg/dl (9-20); Calcium 8.0 mg/dl (8.4-10.2); Carbon Dioxide 25 mmol/L (22-30); Chloride 112 mmol/L (98-107); Estimated Creatinine Clearance 79 ml/min; Glucose 105 mg/dl (70-99); Magnesium 2.4 mg/dl (1.6-2.3); Potassium 3.7 mmol/L (3.5-5.1); Sodium 138 mmol/L (135-145); eGFR > 60.00
[2025-06-25 07:56] VITALS: BP 112/72
[2025-06-25] MEDS: VANCOCIN 150 IV (08:46)
[2025-06-25] MEDS: TOPROL XL 25 MG PO (08:48)
[2025-06-25] MEDS: COZAAR 25 MG PO (08:48)
[2025-06-25] MEDS: HEPARIN 5000 UNITS SC ×2 (08:48→20:49)
[2025-06-25] MEDS: DAKIN'S SOLUTION 0.125% 1/4 STRENGTH 1 ML TOPICAL (09:01)
--- NOTE | 2025-06-25 10:44 | W.PN.SURGUPD ---
Surgical Update
Surgical Update
Patient seen in follow-up and request by hospitalist service.
Patient oriented to self and location.
Sacral decubitus wound evaluated. Dry eschar. No fluctuance, no active drainage, no malodor. No surrounding erythema.
MR negative for osteomyelitis and any fluid collections. Expected edematous/inflammatory changes.
Recommend local wound care, offloading and maximizing nutritional therapy
No immediate role for surgical debridement at this stage of the decubitus wound.
[2025-06-25 11:41] VITALS: BP 110/67
--- NOTE | 2025-06-25 11:54 | W.PN.HOSP.TC ---
Today's Communication/Plan
-
Antibiotics. PT OT
Assessment / Plan
Assessment / Plan
Physical exam:
General: Acutely ill. Nontoxic appearance
HEENT: Normocephalic, Atraumatic and Dry Mucous Membranes
Respiratory: Clear to Auscultation; Negative Wheezes, Rales or Rhonchi
Cardiac: Regular Rhythm and S1/S2
GI: Soft, Nontender and Nondistended
Musculoskeletal: No joint effusions
Skin: Large sacral decubitus ulcer, multiple other ulcers on his trunk, right maxillary region, left xiphoid area, right lower chest wall, and knees.
Neuro: Alert oriented, no gross neurological deficit, increased tone and bradykinesia.
Psych: Normal judgment and insight
A/P:
Suspected sepsis present on admission with endorgan damage with hyperbilirubinemia (bilirubin at 2.5):
Blood cultures with CoNS
ID consult appreciated
No need for LP
General surgery consulted initially and I reach out to them again today to reevaluate him now that he is more alert and can consent if needed. Surgery feels no need for surgical intervention.
Continue broad-spectrum antibiotics now on IV Zosyn and vancomycin
Stop IV fluid
PT OT SP eval
Updated [id number] today
Acute toxic-metabolic encephalopathy:
Improving
Likely multifactorial, infection, Parkinson's, and medications
Monitor mental status
Skin:
R cheek with unstageable PI
B/L knee with PI-->R knee unstageable. L knee with evolving DTI.
R lateral heel with DTI
Hypoxia:
Improved
Chest x-ray no acute chest pathology
Monitor respiratory status closely
Hypokalemia:
Repleted and trend
Rhabdomyolysis, nontraumatic:
Off IV fluid
CPK 1295 upon admission--> 492 today
Paroxysmal A-fib:
Not on anticoagulation prior to admission
History of ablation in the past
Resumed Toprol-XL
Discontinue IV Lopressor
Advanced Parkinson's disease:
Neurology consult
Started on rotigotine transdermal
Restarted on home doses of Sinemet
DVT prophylaxis:
Heparin SQ
CODE STATUS:
Full code
Total time spent on today's encounter was 37 minutes which included time spent in counseling the patient/family regarding diagnosis and treatment plan as listed above, goals of care, and symptom management. Case was discussed with nursing staff,
specialists, and care coordinators/case management. All labs and imaging personally reviewed by me. Remainder the time spent in detailed review of previous records, lab data, imaging, and other medical provider documentation.
Anticipated Discharge: 24 - 48 hours
Subjective/Interval History
-
Date of Service: June 25, 2025
Patient more alert and coherent today. He knows where he is at and knows the date. He is also more conversant and coherent. Afebrile
Objective Data
-
Labs:
Laboratory Results
06/25/25
05:19
WBC 15.1 H
Hgb 11.6 L
Hct 36.3 L
Plt Count 284
Sodium 138
Potassium 3.7
Chloride 112 H
Carbon Dioxide 25
BUN 19
Creatinine 0.8
Glucose 105 H
Calcium 8.0 L
Vital Signs:
Vital Signs
Temp Pulse Resp BP Pulse Ox
98.4 F 66 17 110/67 97
06/25/25 11:41 06/25/25 11:41 06/25/25 11:41 06/25/25 11:41 06/25/25 11:41
I&O
06/24/25 06/25/25 06/26/25
06:59 06:59 06:59
Intake Total 3700 / 3700 480 / 480
Output Total 550 / 550
Balance 3150 / 3150 480 / 480
--- NOTE | 2025-06-25 12:00 | W.PN.NEURO.1 ---
Today's Communication / Plan
-
Advance rotigotine patch dosing from 2 mg to 3 mg
When able to take by mouth, restart carbidopa/levodopa dosing at outpatient levels with gradual discontinuance of rotigotine patch over the course of weeks
Would consider return to palliative care
Neuro Assessment/Plan
Assessment
Abrupt onset of change in mental status. Likely that the patient became frozen with Parkinson's disease and subsequently was unable to move.
Current status is most likely secondary to inadequate dopamine levels and possible underlying toxic metabolic encephalopathy. Current improvement suggests that therapies are being of benefit.
Plan
Advance rotigotine patch dosing from 2 mg to 3 mg
When able to take by mouth, restart carbidopa/levodopa dosing at outpatient levels with gradual discontinuance of rotigotine patch over the course of weeks
Would consider return to palliative care
Will follow peripherally.
Subjective/Objective
Subjective Data
Date of Service: June 25, 2025
Patient unable to fight his own medical history
Objective Data
Vital Signs
Temp Pulse Resp BP Pulse Ox
36.9 C 66 17 110/67 97
06/25/25 11:41 06/25/25 11:41 06/25/25 11:41 06/25/25 11:41 06/25/25 11:41
Lab Results
06/25/25 05:19
06/25/25 05:19
PT 17.7 Sec (11.4-14.6) H 06/24/25 05:21
INR 1.43 06/24/25 05:21
Sodium 138 mmol/L (135-145) 06/25/25 05:19
Potassium 3.7 mmol/L (3.5-5.1) 06/25/25 05:19
BUN 19 mg/dl (9-20) 06/25/25 05:19
Glucose 105 mg/dl (70-99) H 06/25/25 05:19
Calcium 8.0 mg/dl (8.4-10.2) L 06/25/25 05:19
Patient Allergies
aspartame Allergy (Verified 12/25/23 18:26)
Afib
Review of Systems
-
Unable to obtain full review of systems at this time due to: Dementia
History Source: Patient
All other systems: Reviewed and negative
Physical Exam
-
General: No Apparent Distress and Appears Stated Age
Eyes: Round OU, [place] Conjunctivae and No Ptosis
HEENT: Anicteric and Moist Mucous Membranes
Neck: Full Range of Motion
Respiratory: No Dyspnea
Cardiac: No JVD
GI: Non-distended
Skin: Unremarkable
Extremities: No Clubbing, No Cyanosis and No Edema
Psych: Negative Intact Judgement/Insight
Extended Neurological Exam
Mood & Affect: Mood Unremarkable; Negative Affect Unremarkable (Flat)
Attention Span & Concentration: Awake, Interactive, Closes Eyes after Stimulation (After 5 seconds), Unable to Perform 2 Step Request and Other (difficulty with single step requests); Negative Alert
Memory: Unable to Recall Personal History
Tremor: Hand Tremor Absent and Head Tremor Absent
Involuntary Movement: None
Speech: Moderately Reduced Output and Other (Low volume)
Cranial Nerve II: Left Eye: Pupillary Size Unremarkable and Unable to Assess Visual [place]
Cranial Nerve II: Right Eye: Pupillary Size Unremarkable and Unable to Assess Visual [place]
Cranial Nerve V: Facial Sensation: Unable to Assess
Cranial Nerve VII: Facial Symmetry: Normal Facial Symmetry
Cranial Nerve VIII: Hearing: Unremarkable Hearing to Normal Conversational Volume
Muscle Strength, Overall: Spontaneously Moves (All extremities)
Muscle Bulk & Tone: Bulk Unremarkable and Tone Unremarkable
Pronator Drift: Unable to Assess
Vibration Sensation: Unable to Assess
Coordination: Unable to Assess
Gait & Station: Unable to Assess
Data Reviewed
-
Labs: Report Reviewed
Reviewed with: Nurse and Patient
Old Records: Summarized
Past History
Past History
ED Past Medical History: Arrthythmia (PAF), HTN, Other (Parkinson's disease) and Other (chronic back pain)
ED Past Surgical History: Orthopedic ([id number] fusion, right shoulder rotator cuff repair June 2018)
Patient has exhibited threatening behavior?: No
Social History
Tobacco: Non-smoker
Alcohol: None
Drug: None
Personal:
Living: alone
Employment: Employed
Family History
Family History: Hypertension and Other (Father with pancreatic cancer mother with Parkinson's)
Medications
-
Medications:
Generic Name Dose Route Start Last Admin
Trade Name Freq PRN Reason Stop Dose Admin
Carbidopa/Levodopa 3 tablet 06/25/25 06:00 06/25/25 10:01
Carbidopa (25 Mg)/Levodopa (100 Mg) Regular Release Tablet PO 07/23/25 05:59 3 tablet
TID@0600,0900,1200 CECI Administration
Carbidopa/Levodopa 3 tablet 06/24/25 18:00 06/24/25 21:09
Carbidopa (25 Mg)/Levodopa (100 Mg) Regular Release Tablet PO 07/22/25 17:59 3 tablet
TID@1500,1800,2100 CECI Administration
Heparin Sodium 5,000 units 06/23/25 08:00 06/25/25 08:48
Heparin 5,000 Units/Ml 1 Ml Vial SC 07/21/25 07:59 5,000 units
Q12 CECI Administration
Vancomycin HCl 750 mg in 150 mls @ 150 mls/hr 06/23/25 18:00 06/25/25 08:46
Vancocin IV 150 mls
Q12H CECI Administration
Protocol
Piperacillin Sod/Tazobactam Sod 3.375 gram in 50 mls @ 100 mls/hr 06/24/25 14:00 06/25/25 08:47
Zosyn IV 50 mls
Q6H CECI Administration
Losartan Potassium 25 mg 06/24/25 17:00 06/25/25 08:48
Losartan 25 Mg Tablet PO 07/22/25 16:59 25 mg
DAILY CECI Administration
Metoprolol Succinate 25 mg 06/24/25 17:00 06/25/25 08:48
Metoprolol 25 Mg Extended Release Tablet PO 07/22/25 16:59 25 mg
DAILY CECI Administration
Metoprolol Tartrate 5 mg 06/23/25 14:00
Metoprolol 5 Mg/5 Ml Vial IV 07/21/25 13:59
Q6HPRN PRN
heart rate > 120
Rotigotine 1 mg 06/25/25 12:00
Rotigotine (Neupro) 1 Mg Patch TRANSDERM 07/23/25 11:59
DAILY CECI
Rotigotine 2 mg 06/25/25 12:00
Rotigotine (Neupro) 2 Mg Patch TRANSDERM 07/23/25 11:59
DAILY CECI
Sodium Chloride 0 flush 06/23/25 01:00
Sodium Chloride 0.9% (Flush) Syringe IV 07/21/25 00:59
PER PROTOCOL CECI
Sodium Hypochlorite 0 ml 06/24/25 08:00 06/25/25 09:01
Dakin's Solution 0.125% (1/4 Strength) 473 Ml Bottle TOPICAL 07/22/25 07:59 1 ml
DAILY CECI Administration
[2025-06-25] MEDS: NEUPRO 1 MG TRANSDERM (13:03)
[2025-06-25] MEDS: NEUPRO 2 MG TRANSDERM (13:04)
--- NOTE | 2025-06-25 14:26 | W.PN.ID1 ---
Date of Service
Date of Service: June 25, 2025
Today's Communication
ongoing offloading of the sacral wound is critical, reviewed with patient
follow up with wound care
no indication for further antibiotics at this time - stopped
Assessment / Plan
Fever - resolved
Contaminated blood culture - CONS pseudobacteremia
Rhabdomyolysis
Encephalopathy - resolved
Sacral Decubitus Ulcer
- blood cultures 1 set with CONS most likely a contaminant
- repeat blood cultures x2 in progress no growth to date
- appreciate surgical consult - agree no indication of infection and no need for debridement
- MRI pelvis devitalized soft tissue at the level of the sacrum and coccyx; myositis likely due to rhabdomyolysis
- fever was likely due to rhabdomyolysis
- leukocytosis is likely reactive
- importance of offloading of the sacral wound discussed with patient
- follow up with wound care
- stop antibiotics and follow clinically
Chief Complaint
-: Bacteremia
Subjective / Review of Systems
fever resolved
bp stable
alert, responding appropriately to questions, soft voice
Vital Signs / Physical Exam
Vital Signs
Vital Signs
Temp Pulse Resp BP Pulse Ox
98.4 F 66 17 110/67 97
06/25/25 11:41 06/25/25 11:41 06/25/25 11:41 06/25/25 11:41 06/25/25 11:41
Physical Exam
Constitutional: No Acute Distress
Cardiovascular: Regular Rate and S1/S2; Negative Murmur or Rub
Pulmonary: Clear and Symmetric; Negative Wheezes or Rales
Gastrointestinal: Soft, Non Tender, Non Distended and Normal Bowel Sounds
Skin: Warm and Dry; Negative Rash or Jaundice
Wound: Other (developing eschar over the sacral region, no surrounding erythema, warmth or fluctuance, eschars over the cheek, ribs and bilateral knees)
Neurological: Awake and Alert
Objective Data
Lab Data
Lab Results
06/25/25 05:19
06/25/25 05:19
PT 17.7 Sec (11.4-14.6) H 06/24/25 05:21
INR 1.43 06/24/25 05:21
Estimated Creat Clear 79 ml/min 06/25/25 05:19
Lactic Acid 1.2 mmol/L (0.7-2.0) 06/22/25 22:02
Total Bilirubin 1.2 mg/dl (0.2-1.3) 06/24/25 05:21
AST 49 U/L (17-59) 06/24/25 05:21
ALT 25 U/L (0-50) 06/24/25 05:21
Alkaline Phosphatase 59 U/L (38-126) 06/24/25 05:21
Most recent labs reviewed.
Micro Results:
06/24/25 13:07 Blood Culture - Preliminary
Blood/Venous No Growth in 24 hours- Final report to follow
06/24/25 12:39 Blood Culture - Preliminary
Blood/Venous No Growth in 24 hours- Final report to follow
06/22/25 22:02 Blood Culture - Preliminary
Blood/Venous Coagulase neg. staphylococcus
Additional testing on request
Gram Stain - Preliminary
06/23/25 23:19 MRSA Screen - Final
Nose No Methicillin Resistant Staphylococcus aureus isolated.
06/22/25 22:02 Blood Culture - Preliminary
Blood/Venous No Growth in 48 hours- Final report to follow
06/22/25 19:29 Urine Culture - Final
Urine No Significant Growth
06/22/25 22:28 Influenza Types A & B (JOSEF) - Final
Nasal Swab Negative for Influenza A & B, NAAT
Negative results must be combined with clinical observations
and patient history.
Nucleic Acid Amplification test (NAAT)performed on the
[employer] platform.
[2025-06-25 15:52] VITALS: BP 103/63
[2025-06-25] MEDS: TYLENOL 650 MG PO (22:58)
[2025-06-25 23:00] VITALS: BP 114/75
[2025-06-26] MEDS: TORADOL 15 MG IV (01:42)
--- NOTE | 2025-06-26 03:28 | PTCARENOTE ---
patient had an axillary temp of 100.6 axillary. LARRY Linder notified. new ordered for PRN Tylenol placed. See MAR for administration. when rechecking patients temperature, it was 101.6 axillary. LARRY notified. RN instructed to place ice on
patient and new order for Toradol placed. See MAR for administration. when rechecking patients temp it was 98.7. POC ongoing.
[2025-06-26] MEDS: SINEMET 25-100 3 TABLET PO ×6 (05:38→20:44)
[2025-06-26 06:45] LABS: Hematocrit 35.9 % (39.0-52.0); Hemoglobin 11.8 g/dL (13.0-18.0); Mean Corp Hgb Conc. 32.9 g/dL (33.0-37.0); Mean Corpuscular Volume 91.3 fL (80.0-94.0); Nucleated Red Blood Cells % 0 % (-); Platelet Count 278 10^3/uL (130-400); Red Cell Dist. Width 13.9 % (11.5-14.5)
[2025-06-26 07:11] LABS: Blood Urea Nitrogen 22 mg/dl (9-20); Calcium 7.7 mg/dl (8.4-10.2); Carbon Dioxide 26 mmol/L (22-30); Chloride 104 mmol/L (98-107); Estimated Creatinine Clearance 79 ml/min; Glucose 95 mg/dl (70-99); Potassium 3.7 mmol/L (3.5-5.1); Sodium 132 mmol/L (135-145); eGFR > 60.00
[2025-06-26 07:57] VITALS: BP 143/85
[2025-06-26] MEDS: NEUPRO 1 MG TRANSDERM (08:28)
[2025-06-26] MEDS: HEPARIN 5000 UNITS SC ×2 (08:29→20:44)
[2025-06-26] MEDS: TOPROL XL 25 MG PO (08:29)
[2025-06-26] MEDS: COZAAR 25 MG PO (08:29)
[2025-06-26] MEDS: NEUPRO 2 MG TRANSDERM (08:29)
[2025-06-26] MEDS: DAKIN'S SOLUTION 0.125% 1/4 STRENGTH 473 ML TOPICAL (08:30)
--- NOTE | 2025-06-26 11:28 | W.PN.HOSP.TC ---
Today's Communication/Plan
-
Monitor urine output and temperature curve. Increase activity.
Assessment / Plan
Assessment / Plan
Physical exam:
General: Acutely ill. Nontoxic appearance
HEENT: Normocephalic, Atraumatic and Dry Mucous Membranes
Respiratory: Clear to Auscultation; Negative Wheezes, Rales or Rhonchi
Cardiac: Regular Rhythm and S1/S2
GI: Soft, Nontender and Nondistended
Musculoskeletal: No joint effusions
Skin: Large sacral decubitus ulcer, multiple other ulcers on his trunk, right maxillary region, left xiphoid area, right lower chest wall, and knees.
Neuro: Alert oriented, no gross neurological deficit, increased tone and bradykinesia.
Psych: Normal judgment and insight
A/P:
Initially suspected sepsis present on admission with endorgan damage with hyperbilirubinemia (bilirubin at 2.5) but unclear if this was the culprit and might be able to rule it out depending on clinical course:
Blood cultures with CoNS
ID consult appreciated--> discussed with ID today on 06/26 and recommend to keep off antibiotics
No need for LP
General surgery consulted initially and I reached out to them again on 06/25 to reevaluate him now that he was more alert and can consent if needed. Surgery felt no need for surgical intervention.
Off antibiotic
PT OT SP eval
Updated [id number] yesterday
Restart gentle hydration with IV fluid
Leukocytosis:
This could be reactive
Follow-up trend
Acute toxic-metabolic encephalopathy:
Improving
Likely multifactorial, infection, Parkinson's, and medications
Monitor mental status
Skin:
R cheek with unstageable PI
B/L knee with PI-->R knee unstageable. L knee with evolving DTI.
R lateral heel with DTI
Hypoxia:
Improved
Chest x-ray no acute chest pathology
Monitor respiratory status closely
Hypokalemia:
Repleted and trend
Rhabdomyolysis, nontraumatic:
Off IV fluid
CPK 1295 upon admission--> 492 last time we checked
Will repeat CPK tomorrow
Paroxysmal A-fib:
Not on anticoagulation prior to admission
History of ablation in the past
Resumed Toprol-XL
Discontinue IV Lopressor
Advanced Parkinson's disease:
Neurology consult
Started on rotigotine transdermal
Restarted on home doses of Sinemet
DVT prophylaxis:
Heparin SQ
CODE STATUS:
Full code
Total time spent on today's encounter was 37 minutes which included time spent in counseling the patient/family regarding diagnosis and treatment plan as listed above, goals of care, and symptom management. Case was discussed with nursing staff,
specialists, and care coordinators/case management. All labs and imaging personally reviewed by me. Remainder the time spent in detailed review of previous records, lab data, imaging, and other medical provider documentation.
Anticipated Discharge: Within 24 hours
Subjective/Interval History
-
Date of Service: June 26, 2025
Patient had a fever overnight Tmax 101.6 Fahrenheit. Urine output is slightly dark. No chest pain or shortness of breath.
Objective Data
-
Labs:
Laboratory Results
06/26/25
06:09
WBC 15.0 H
Hgb 11.8 L
Hct 35.9 L
Plt Count 278
Sodium 132 L
Potassium 3.7
Chloride 104
Carbon Dioxide 26
BUN 22 H
Creatinine 0.8
Glucose 95
Calcium 7.7 L
Vital Signs:
Vital Signs
Temp Pulse Resp BP Pulse Ox
98.1 F 62 16 143/85 98
06/26/25 11:07 06/26/25 08:29 06/26/25 07:57 06/26/25 08:29 06/26/25 09:19
I&O
06/25/25 06/26/25 06/27/25
06:59 06:59 06:59
Intake Total 480 / 480 2610 / 2610
Output Total 700 / 700
Balance 480 / 480 1909 / 1909
--- NOTE | 2025-06-26 12:45 | W.PN.ID1 ---
Date of Service
Date of Service: June 26, 2025
Today's Communication
- given relapse of fevers will restart empiric augmentin for a 7 day course
Assessment / Plan
Fever - resolved
Contaminated blood culture - CONS pseudobacteremia
Rhabdomyolysis
Encephalopathy - resolved
Sacral Decubitus Ulcer
- blood cultures 1 set with CONS most likely a contaminant
- repeat blood cultures x2 in progress no growth to date
- appreciate surgical consult
- MRI pelvis devitalized soft tissue at the level of the sacrum and coccyx; myositis likely due to rhabdomyolysis
- importance of offloading of the sacral wound discussed with patient 06/25
- follow up with wound care
- given relapse of fevers will restart empiric augmentin for a 7 day course
Chief Complaint
-: Bacteremia
Subjective / Review of Systems
febrile to 101.6 overnight
BP stable
soft spoken
reports no new complaints
Vital Signs / Physical Exam
Vital Signs
Vital Signs
Temp Pulse Resp BP Pulse Ox
98.1 F 62 16 143/85 98
06/26/25 11:07 06/26/25 08:29 06/26/25 07:57 06/26/25 08:29 06/26/25 09:19
Physical Exam
Constitutional: No Acute Distress
Cardiovascular: Regular Rate and S1/S2; Negative Murmur or Rub
Pulmonary: Clear and Symmetric; Negative Wheezes or Rales
Gastrointestinal: Soft, Non Tender, Non Distended and Normal Bowel Sounds
Skin: Warm and Dry; Negative Rash or Jaundice
Objective Data
Lab Data
Lab Results
06/26/25 06:09
06/26/25 06:09
PT 17.7 Sec (11.4-14.6) H 06/24/25 05:21
INR 1.43 06/24/25 05:21
Estimated Creat Clear 79 ml/min 06/26/25 06:09
Lactic Acid 1.2 mmol/L (0.7-2.0) 06/22/25 22:02
Total Bilirubin 1.2 mg/dl (0.2-1.3) 06/24/25 05:21
AST 49 U/L (17-59) 06/24/25 05:21
ALT 25 U/L (0-50) 06/24/25 05:21
Alkaline Phosphatase 59 U/L (38-126) 06/24/25 05:21
Most recent labs reviewed.
Micro Results:
06/22/25 22:02 Blood Culture - Preliminary
Blood/Venous Coagulase neg. staphylococcus
Additional testing on request
Gram Stain - Preliminary
06/22/25 22:02 Blood Culture - Preliminary
Blood/Venous No Growth in 72 hours- Final report to follow
06/24/25 13:07 Blood Culture - Preliminary
Blood/Venous No Growth in 24 hours- Final report to follow
06/24/25 12:39 Blood Culture - Preliminary
Blood/Venous No Growth in 24 hours- Final report to follow
06/23/25 23:19 MRSA Screen - Final
Nose No Methicillin Resistant Staphylococcus aureus isolated.
06/22/25 19:29 Urine Culture - Final
Urine No Significant Growth
06/22/25 22:28 Influenza Types A & B (JOSEF) - Final
Nasal Swab Negative for Influenza A & B, NAAT
Negative results must be combined with clinical observations
and patient history.
Nucleic Acid Amplification test (NAAT)performed on the
[employer] platform.
Care Review
Plan reviewed with: Physician (Dr Kapil chapman)
[2025-06-26 13:15] VITALS: BP 128/79; PULSE 65; O2SAT 96
[2025-06-26] MEDS: NSS 1000 IV (13:25)
[2025-06-26 14:15] VITALS: BP 128/79; PULSE 64; O2SAT 96
[2025-06-26] MEDS: AUGMENTIN 875 MG/125 MG 1 TABLET PO ×2 (15:09→20:44)
--- NOTE | 2025-06-26 15:27 | CM ---
Attempted to complete IA with patient who was very lethargic, some confusion noted and unable to respond to questioning. Kept dozing off. This CM called and left message for primary contact. Left phone # and request for return call.
[2025-06-26 16:07] VITALS: BP 148/81
[2025-06-26 23:00] VITALS: BP 135/80
[2025-06-27] MEDS: NSS 1000 IV ×2 (00:33→08:26)
[2025-06-27] MEDS: SINEMET 25-100 3 TABLET PO ×6 (05:33→20:41)
[2025-06-27 07:00] VITALS: BP 135/80
[2025-06-27 07:52] LABS: Hematocrit 34.0 % (39.0-52.0); Hemoglobin 11.5 g/dL (13.0-18.0); Mean Corp Hgb Conc. 33.8 g/dL (33.0-37.0); Mean Corpuscular Volume 89.0 fL (80.0-94.0); Nucleated Red Blood Cells % 0 % (-); Platelet Count 265 10^3/uL (130-400); Red Cell Dist. Width 13.6 % (11.5-14.5)
[2025-06-27 08:22] VITALS: BP 135/80
[2025-06-27] MEDS: NEUPRO 2 MG TRANSDERM (08:22)
[2025-06-27] MEDS: NEUPRO 1 MG TRANSDERM (08:24)
[2025-06-27] MEDS: TOPROL XL 25 MG PO (08:24)
[2025-06-27] MEDS: COZAAR 25 MG PO (08:24)
[2025-06-27] MEDS: AUGMENTIN 875 MG/125 MG 1 TABLET PO ×2 (08:24→20:40)
[2025-06-27] MEDS: HEPARIN 5000 UNITS SC ×2 (08:25→20:41)
[2025-06-27] MEDS: DAKIN'S SOLUTION 0.125% 1/4 STRENGTH 473 ML TOPICAL (08:26)
[2025-06-27 08:35] LABS: Blood Urea Nitrogen 15 mg/dl (9-20); Calcium 7.7 mg/dl (8.4-10.2); Carbon Dioxide 25 mmol/L (22-30); Chloride 104 mmol/L (98-107); Estimated Creatinine Clearance 105 ml/min; Glucose 95 mg/dl (70-99); Potassium 4.1 mmol/L (3.5-5.1); Sodium 129 mmol/L (135-145); eGFR > 60.00
--- NOTE | 2025-06-27 09:30 | W.PN.HOSP.TC ---
Today's Communication/Plan
-
Hyponatremia workup. Continue antibiotics. PT OT
Assessment / Plan
Assessment / Plan
Physical exam:
General: Acutely ill. Nontoxic appearance
HEENT: Normocephalic, Atraumatic and Dry Mucous Membranes
Respiratory: Clear to Auscultation; Negative Wheezes, Rales or Rhonchi
Cardiac: Regular Rhythm and S1/S2
GI: Soft, Nontender and Nondistended
Musculoskeletal: No joint effusions
Skin: Large sacral decubitus ulcer, multiple other ulcers on his trunk, right maxillary region, left xiphoid area, right lower chest wall, and knees.
Neuro: Alert oriented, no gross neurological deficit, increased tone and bradykinesia.
Psych: Normal judgment and insight
A/P:
Initially suspected sepsis present on admission with endorgan damage with hyperbilirubinemia (bilirubin at 2.5) but unclear source:
Blood cultures with CoNS
ID consult appreciated--> ID recommended to restart antibiotics on 06/26 with oral Augmentin.
No need for LP
General surgery consulted initially and I reached out to them on 06/25 to reevaluate him since he was more alert and can consent if needed. Surgery felt no need for surgical intervention.
PT OT SP eval
Updated [id number] prior
Stop IV fluids
Discussed with immigration case worker today and plan for SNF
Hyponatremia:
Check urine osmolarity and urine sodium
Fluid restriction
Trend sodium
Leukocytosis:
This could be reactive versus infectious
Trending down
Acute toxic-metabolic encephalopathy:
Improving but on and off
Likely multifactorial, infection, Parkinson's, and medications
Monitor mental status
Skin:
R cheek with unstageable PI
B/L knee with PI-->R knee unstageable. L knee with evolving DTI.
R lateral heel with DTI
Hypoxia:
Improved
Chest x-ray no acute chest pathology
Monitor respiratory status closely
Hypokalemia:
Repleted and trend
Rhabdomyolysis, nontraumatic:
Stop IV fluid again
CPK 1295 upon admission--> 205 today
Paroxysmal A-fib:
Not on anticoagulation prior to admission
History of ablation in the past
Resumed Toprol-XL
Off IV Lopressor
Discontinued telemetry
Advanced Parkinson's disease:
Neurology consult
Started on rotigotine transdermal
Restarted on home doses of Sinemet
DVT prophylaxis:
Heparin SQ
CODE STATUS:
Full code
Total time spent on today's encounter was 52 minutes which included time spent in counseling the patient/family regarding diagnosis and treatment plan as listed above, goals of care, and symptom management. Case was discussed with nursing staff,
specialists, and care coordinators/case management. All labs and imaging personally reviewed by me. Remainder the time spent in detailed review of previous records, lab data, imaging, and other medical provider documentation.
Anticipated Discharge: > 48 hours
Subjective/Interval History
-
Date of Service: June 27, 2025
Patient remains alert, orientation fluctuates, afebrile. Generalized weakness present
Objective Data
-
Labs:
Laboratory Results
06/27/25
07:29
WBC 12.3 H
Hgb 11.5 L
Hct 34.0 L
Plt Count 265
Sodium 129 L
Potassium 4.1
Chloride 104
Carbon Dioxide 25
BUN 15
Creatinine 0.6 L
Glucose 95
Calcium 7.7 L
Vital Signs:
Vital Signs
Temp Pulse Resp BP Pulse Ox
99.9 F 69 16 135/80 96
06/27/25 07:00 06/27/25 07:00 06/27/25 07:00 06/27/25 07:00 06/27/25 07:00
I&O
06/26/25 06/27/25 06/28/25
06:59 06:59 06:59
Intake Total 2610 / 2610 2220 / 2220
Output Total 700 / 700 620 / 620
Balance 1909 / 1909 1600 / 1600
[2025-06-27] MEDS: TYLENOL 650 MG PO (14:52)
[2025-06-27 15:00] VITALS: BP 125/76
[2025-06-27] MEDS: DILAUDID 0.25 MG IV (15:43)
--- NOTE | 2025-06-27 16:26 | CM ---
Addendum entered by Meghan Torrez 06/27/25 16:35:
Pharmacy: [facility], [address] [place] [address], [place]
Original Note:
Patient seen at bedside
patient lethargic
IA completed
spoke with Riley Paras (contact) brother in law
states patient was living at his girlfriend's 2 story home, [address] bedroom/bath on 2nd floor approx 10 steps
he stated that the patient was living at [facility] until approx 4 wks ago prior to going to girlfriend's home
PLOF: reported patient was using a walker 3 weeks ago
DME: Walker, cane
no reported VN/Rehab
PT/OT rec SNF
discussed with patient recommendation, no preference, referrals placed in careport
will need ins auth
PCP: Loco Lynch
PLAN: SNF, pending bed availability, CM to continue to follow for discharge planning/needs
[2025-06-27] MEDS: SODIUM CHLORIDE 1 GRAM PO (20:41)
[2025-06-27 23:00] VITALS: BP 123/70
[2025-06-28] MEDS: SINEMET 25-100 3 TABLET PO ×6 (06:15→21:10)
[2025-06-28 08:05] VITALS: BP 144/81
[2025-06-28] MEDS: AUGMENTIN 875 MG/125 MG 1 TABLET PO ×2 (09:21→21:10)
[2025-06-28] MEDS: TOPROL XL 25 MG PO (09:21)
[2025-06-28] MEDS: COZAAR 25 MG PO (09:22)
[2025-06-28] MEDS: SODIUM CHLORIDE 1 GRAM PO ×2 (09:22→21:11)
[2025-06-28] MEDS: HEPARIN 5000 UNITS SC ×2 (09:22→21:10)
[2025-06-28] MEDS: NEUPRO 1 MG TRANSDERM (09:24)
[2025-06-28] MEDS: DAKIN'S SOLUTION 0.125% 1/4 STRENGTH 50 ML TOPICAL (09:25)
[2025-06-28] MEDS: NEUPRO 2 MG TRANSDERM (09:25)
[2025-06-28 10:35] LABS: Hematocrit 35.5 % (39.0-52.0); Hemoglobin 11.5 g/dL (13.0-18.0); Mean Corp Hgb Conc. 32.4 g/dL (33.0-37.0); Mean Corpuscular Volume 92.9 fL (80.0-94.0); Nucleated Red Blood Cells % 0 % (-); Platelet Count 311 10^3/uL (130-400); Red Cell Dist. Width 13.7 % (11.5-14.5)
[2025-06-28 11:01] LABS: Cortisol, Random 11.1 ug/dl
[2025-06-28 11:35] LABS: Blood Urea Nitrogen 13 mg/dl (9-20); Calcium 8.1 mg/dl (8.4-10.2); Carbon Dioxide 25 mmol/L (22-30); Chloride 101 mmol/L (98-107); Estimated Creatinine Clearance 105 ml/min; Glucose 85 mg/dl (70-99); Potassium 4.1 mmol/L (3.5-5.1); Sodium 128 mmol/L (135-145); eGFR > 60.00
--- NOTE | 2025-06-28 12:37 | W.PN.HOSP.TC ---
Today's Communication/Plan
-
Oral antibiotics. Fluid restriction. Efforts towards discharge disposition
Assessment / Plan
Assessment / Plan
Physical exam:
General: Acutely ill. Nontoxic appearance
HEENT: Normocephalic, Atraumatic and Dry Mucous Membranes
Respiratory: Clear to Auscultation; Negative Wheezes, Rales or Rhonchi
Cardiac: Regular Rhythm and S1/S2
GI: Soft, Nontender and Nondistended
Musculoskeletal: No joint effusions
Skin: Large sacral decubitus ulcer, multiple other ulcers on his trunk, right maxillary region, left xiphoid area, right lower chest wall, and knees.
Neuro: Alert oriented, does fall asleep easily though after answering questions, no gross neurological deficit, increased tone and bradykinesia.
Psych: Normal judgment and insight
A/P:
Initially suspected sepsis present on admission with endorgan damage with hyperbilirubinemia (bilirubin at 2.5) but unclear source:
Blood cultures with CoNS
ID consult appreciated--> ID recommended to keep on oral Augmentin for 7 days since 06/26.
No need for LP
General surgery consulted initially and I reached out to them on 06/25 to reevaluate him since he was more alert and can consent if needed. Surgery felt no need for surgical intervention.
PT OT SP eval
Updated [id number] prior
Stop IV fluids
Discussed with case sealer today and medically ready for discharge over the next ensuing days and plan for SNF
Hyponatremia:
Sodium 128 today
Urine osmolarity 813 and urine sodium 110 consistent with SIADH.
Continue oral fluid restriction and salt tablets.
Trend sodium
Leukocytosis:
This could be reactive versus infectious
Continue to trend
Acute toxic-metabolic encephalopathy:
Improving but on and off
Likely multifactorial, infection, Parkinson's, and medications
Monitor mental status
Skin:
R cheek with unstageable PI
B/L knee with PI-->R knee unstageable. L knee with evolving DTI.
R lateral heel with DTI
Continue pain medications as needed
Hypoxia:
Improved
Chest x-ray no acute chest pathology
Monitor respiratory status closely
Hypokalemia:
Repleted and trend
Rhabdomyolysis, nontraumatic:
Off IV fluids
CPK 1295 upon admission--> 205 last time checked
Paroxysmal A-fib:
Not on anticoagulation prior to admission
History of ablation in the past
Continue oral Toprol-XL
Advanced Parkinson's disease:
Neurology consult appreciated
Started on rotigotine transdermal
Restarted on home doses of Sinemet
DVT prophylaxis:
Heparin SQ
CODE STATUS:
Full code
Total time spent on today's encounter was 37 minutes which included time spent in counseling the patient/family regarding diagnosis and treatment plan as listed above, goals of care, and symptom management. Case was discussed with nursing staff,
specialists, and care coordinators/case management. All labs and imaging personally reviewed by me. Remainder the time spent in detailed review of previous records, lab data, imaging, and other medical provider documentation.
Anticipated Discharge: 24 - 48 hours
Subjective/Interval History
-
Date of Service: June 28, 2025
Patient alert but does have significant generalized weakness. Looks frail overall. Afebrile
Objective Data
-
Labs:
Laboratory Results
06/28/25
08:06
WBC 14.0 H
Hgb 11.5 L
Hct 35.5 L
Plt Count 311
Sodium 128 L
Potassium 4.1
Chloride 101
Carbon Dioxide 25
BUN 13
Creatinine 0.6 L
Glucose 85
Calcium 8.1 L
Vital Signs:
Vital Signs
Temp Pulse Resp BP Pulse Ox
98.6 F 68 18 144/81 95
06/28/25 08:05 06/28/25 09:22 06/28/25 08:05 06/28/25 09:22 06/28/25 08:05
I&O
06/27/25 06/28/25 06/29/25
06:59 06:59 06:59
Intake Total 2220 / 2220 775 / 775 960 / 960
Output Total 620 / 620 800 / 800
Balance 1600 / 1600 775 / 775 160 / 160
[2025-06-28 16:06] VITALS: BP 127/79
[2025-06-28] MEDS: TYLENOL 650 MG PO (16:58)
[2025-06-28] MEDS: ROXICODONE 5 MG PO (21:26)
[2025-06-28 23:18] VITALS: BP 121/77
[2025-06-29] MEDS: SINEMET 25-100 3 TABLET PO ×6 (05:46→21:45)
[2025-06-29 08:08] VITALS: BP 121/73
[2025-06-29] MEDS: TOPROL XL 25 MG PO (08:59)
[2025-06-29] MEDS: SODIUM CHLORIDE 1 GRAM PO ×2 (08:59→21:44)
[2025-06-29] MEDS: HEPARIN 5000 UNITS SC (09:00)
[2025-06-29] MEDS: COZAAR 25 MG PO (09:00)
[2025-06-29] MEDS: AUGMENTIN 875 MG/125 MG 1 TABLET PO ×2 (09:03→21:43)
[2025-06-29] MEDS: NEUPRO 1 MG TRANSDERM (09:04)
[2025-06-29] MEDS: NEUPRO 2 MG TRANSDERM (09:05)
[2025-06-29 10:01] LABS: Blood Urea Nitrogen 10 mg/dl (9-20); Calcium 7.9 mg/dl (8.4-10.2); Carbon Dioxide 27 mmol/L (22-30); Chloride 102 mmol/L (98-107); Estimated Creatinine Clearance 90 ml/min; Glucose 88 mg/dl (70-99); Potassium 4.1 mmol/L (3.5-5.1); Sodium 132 mmol/L (135-145); eGFR > 60.00
--- NOTE | 2025-06-29 10:13 | W.PN.HOSP.TC ---
Today's Communication/Plan
-
Discharge to short-term rehab when bed available
Assessment / Plan
Assessment / Plan
A/P:
Initially suspected sepsis present on admission with end organ damage with hyperbilirubinemia (bilirubin at 2.5) but unclear source:
Blood cultures with CoNS
ID consult appreciated--> ID recommended to keep on oral Augmentin for 7 days since 06/26, through 07/03
No need for LP
General surgery consulted initially and I reached out to them on 06/25 to reevaluate him since he was more alert and can consent if needed. Surgery felt no need for surgical intervention.
PT OT - rec SNF, [facility] rec soft/bite sized w/ thin liq
Updated [id number] prior
Discharge to short-term rehab when bed available
Hyponatremia:
Sodium 128
Urine osmolarity 813 and urine sodium 110 consistent with SIADH.
Continue oral fluid restriction and salt tablets.
Trend sodium
Leukocytosis:
This could be reactive versus infectious
Continue to trend
Acute toxic-metabolic encephalopathy:
Improving but on and off
Likely multifactorial, infection, Parkinson's, and medications
Monitor mental status
Skin:
R cheek with unstageable PI
B/L knee with PI-->R knee unstageable. L knee with evolving DTI.
R lateral heel with DTI
Continue pain medications as needed
Hypoxia:
Resolved
Chest x-ray no acute chest pathology
Monitor respiratory status closely
Hypokalemia:
Repleted and trend
Rhabdomyolysis, nontraumatic:
Off IV fluids
CPK 1295 upon admission--> 205 last time checked
Paroxysmal A-fib:
Not on anticoagulation prior to admission
History of ablation in the past
Continue oral Toprol-XL
Advanced Parkinson's disease:
Neurology consult appreciated
Started on rotigotine transdermal -neurology recommends weaning over the next several weeks
Restarted on home doses of Sinemet
Neurology recommends palliative care
DVT prophylaxis: Subcu Lovenox
Full code
Total time spent to see the patient on the floor, examine the patient, review data and lab results, discuss treatment plan with patient, nursing staff around 39 minutes.
Physical exam:
General: Appears chronically ill, no acute distress
HEENT: Normocephalic, Atraumatic and Dry Mucous Membranes
Respiratory: Clear to Auscultation; Negative Wheezes, Rales or Rhonchi
Cardiac: Regular Rhythm and S1/S2
GI: Soft, Nontender and Nondistended
Musculoskeletal: No joint effusions
Skin: Large sacral decubitus ulcer, multiple other ulcers on his trunk, right maxillary region, left xiphoid area, right lower chest wall, and knees.
Neuro: Alert oriented, does fall asleep easily though after answering questions, no gross neurological deficit, increased tone and bradykinesia.
Anticipated Discharge: Within 24 hours
Subjective/Interval History
-
Date of Service: June 29, 2025
Patient's voice is soft, making it difficult to understand him. He denies pain, denies shortness of breath. No fever, no vomiting.
Objective Data
-
Labs:
Laboratory Results
06/29/25
08:24
Sodium 132 L
Potassium 4.1
Chloride 102
Carbon Dioxide 27
BUN 10
Creatinine 0.7
Glucose 88
Calcium 7.9 L
Vital Signs:
Vital Signs
Temp Pulse Resp BP Pulse Ox
98.1 F 68 20 121/73 95
06/29/25 08:08 06/29/25 09:00 06/29/25 08:08 06/29/25 09:00 06/29/25 08:08
I&O
11/09/25 11/10/25 11/11/25
06:59 06:59 06:59
Intake Total 775 / 775 2640 / 2640
Output Total 2850 / 2850
Balance 775 / 775 -210 / -210
--- NOTE | 2025-06-29 11:15 | WOUNDNOTE ---
CHEST AND ABDOMEN
--- NOTE | 2025-06-29 11:16 | WOUNDNOTE ---
L 2ND TOE
--- NOTE | 2025-06-29 11:18 | WOUNDNOTE ---
R KNEE POST CLEANING
--- NOTE | 2025-06-29 11:20 | WOUNDNOTE ---
WON RN NOTE: Followed up with patient, nurse Mary and PCT Tushar assisted with turning. Patient attempts to assist but still too weak. Patient alert, able to answer questions but easily falls back to sleep. R cheek and nose abrasions have healed.
Sacral DTI more defined, intact dry brown eschar, odor much less with Dakin's in use, dressing changed. Reviewed Dr. Aguilar's note, MRI negative for osteomyelitis and no debridement necessary. Upper back abrasions have healed, left open to air.
Chest and L abdomen with intact dry black eschar, Vaseline applied after cleaning. L knee abrasion is dry, nearly healed and left open to air. R knee with dry brown eschar in center and serous/cloudy blister surrounding. Mechanical debridement done
upon cleaning, revealed pink healthy skin underneath blister, silicone foam applied. R lateral heel DTI remains unchanged, L heel intact, foams changed. Pillow placed under calves, called SPD for offloading fiber filled heel boots and nurse will
apply when arrives. Patient is on an air overlay, palm check done, nurse added more air until adequate inflation. Repositioned patient to L semi side lying position. Pressure ulcer prevention measures reviewed with patient and staff. Instructed
nurse and PCT importance of maintaining turning schedule. Will update wound care and follow as needed.
[2025-06-29] MEDS: DAKIN'S SOLUTION 0.125% 1/4 STRENGTH 473 ML TOPICAL (13:00)
--- NOTE | 2025-06-29 14:43 | PTCARENOTE ---
Pt drowsy and lethargic this morning, able to answer questions, but quickly falling asleep during conversation. MD made aware. Wound care done with computerized machine fabric cutter and PCT on unit to assist with turns. Pt remains drowsy and needs help with feeding.
call devi in reach. POC ongoing.
--- NOTE | 2025-06-29 15:48 | W.PN.ID1 ---
Date of Service
Date of Service: June 29, 2025
Today's Communication
- c/w augmentin for a 7 day course 06/26-07/02
Assessment / Plan
Fever - resolved
Contaminated blood culture - CONS pseudobacteremia
Rhabdomyolysis
Encephalopathy - resolved
Sacral Decubitus Ulcer
- blood cultures 1 set with CONS most likely a contaminant
- repeat blood cultures x2 finalized negative
- importance of offloading of the sacral wound discussed with patient 06/25
- follow up with wound care
- c/w augmentin for a 7 day course 06/26-07/02
Chief Complaint
-: Bacteremia
Subjective / Review of Systems
afebrile
bp stable
no complaints
compliant with offloading the sacral wound
Vital Signs / Physical Exam
Vital Signs
Vital Signs
Temp Pulse Resp BP Pulse Ox
98.1 F 68 20 121/73 95
06/29/25 08:08 06/29/25 09:00 06/29/25 08:08 06/29/25 09:00 06/29/25 10:00
Physical Exam
Constitutional: No Acute Distress
Cardiovascular: Regular Rate and S1/S2; Negative Murmur or Rub
Pulmonary: Clear and Symmetric; Negative Wheezes or Rales
Gastrointestinal: Soft, Non Tender, Non Distended and Normal Bowel Sounds
Skin: Warm and Dry; Negative Rash or Jaundice
Objective Data
Lab Data
Lab Results
06/28/25 08:06
06/29/25 08:24
PT 17.7 Sec (11.4-14.6) H 06/24/25 05:21
INR 1.43 06/24/25 05:21
Estimated Creat Clear 90 ml/min 06/29/25 08:24
Lactic Acid 1.2 mmol/L (0.7-2.0) 06/22/25 22:02
Total Bilirubin 1.2 mg/dl (0.2-1.3) 06/24/25 05:21
AST 49 U/L (17-59) 06/24/25 05:21
ALT 25 U/L (0-50) 06/24/25 05:21
Alkaline Phosphatase 59 U/L (38-126) 06/24/25 05:21
Most recent labs reviewed.
Micro Results:
06/24/25 13:07 Blood Culture - Final
Blood/Venous No Growth - Final Report
06/24/25 12:39 Blood Culture - Final
Blood/Venous No Growth - Final Report
06/22/25 22:02 Blood Culture - Final
Blood/Venous No Growth - Final Report
06/22/25 22:02 Blood Culture - Preliminary
Blood/Venous Coagulase neg. staphylococcus
Additional testing on request
Gram Stain - Preliminary
06/23/25 23:19 MRSA Screen - Final
Nose No Methicillin Resistant Staphylococcus aureus isolated.
06/22/25 19:29 Urine Culture - Final
Urine No Significant Growth
06/22/25 22:28 Influenza Types A & B (JOSEF) - Final
Nasal Swab Negative for Influenza A & B, NAAT
Negative results must be combined with clinical observations
and patient history.
Nucleic Acid Amplification test (NAAT)performed on the
[employer] platform.
[2025-06-29 16:00] VITALS: BP 118/70
--- NOTE | 2025-06-29 16:17 | CM ---
[facility] spoke with [facility] liaison regarding if they can accept patient at SNF
referral is under review currently, CM to call her back tomorrow
Will need [employer] auth once bed is secured
will need updated PT/OT notes (made aware)
PLAN: SNF, pending acceptance/bed availability-Will need auth once bed secured
[2025-06-29 16:20] VITALS: BP 101/74; PULSE 68; O2SAT 96
[2025-06-29] MEDS: LOVENOX 40 MG SC (18:34)
[2025-06-29] MEDS: DESENEX/MITRAZOL/ZEASORB 1 APPLIC TOPICAL (21:44)
[2025-06-29 23:00] VITALS: BP 136/83
[2025-06-30 06:58] LABS: Hematocrit 31.2 % (39.0-52.0); Hemoglobin 10.4 g/dL (13.0-18.0); Mean Corp Hgb Conc. 33.3 g/dL (33.0-37.0); Mean Corpuscular Volume 87.4 fL (80.0-94.0); Platelet Count 340 10^3/uL (130-400); Red Cell Dist. Width 13.8 % (11.5-14.5)
[2025-06-30 07:12] LABS: Blood Urea Nitrogen 11 mg/dl (9-20); Calcium 8.1 mg/dl (8.4-10.2); Carbon Dioxide 28 mmol/L (22-30); Chloride 102 mmol/L (98-107); Estimated Creatinine Clearance 90 ml/min; Glucose 92 mg/dl (70-99); Potassium 4.1 mmol/L (3.5-5.1); Sodium 133 mmol/L (135-145); eGFR > 60.00
[2025-06-30 07:30] VITALS: BP 122/70
[2025-06-30] MEDS: SODIUM CHLORIDE 1 GRAM PO ×2 (07:47→20:24)
[2025-06-30] MEDS: AUGMENTIN 875 MG/125 MG 1 TABLET PO ×2 (07:48→20:24)
[2025-06-30] MEDS: SINEMET 25-100 3 TABLET PO ×6 (07:48→21:59)
[2025-06-30] MEDS: TOPROL XL 25 MG PO (07:50)
[2025-06-30] MEDS: COZAAR 25 MG PO (07:50)
[2025-06-30] MEDS: DESENEX/MITRAZOL/ZEASORB 1 APPLIC TOPICAL ×2 (07:54→20:28)
[2025-06-30] MEDS: DAKIN'S SOLUTION 0.125% 1/4 STRENGTH 473 ML TOPICAL (07:55)
--- NOTE | 2025-06-30 08:48 | W.PN.HOSP.TC ---
Addendum entered and electronically signed by Dkaota Shaw MD 06/30/25 15:46:
Patient has fever (sepsis ruled out).
Original Note:
Today's Communication/Plan
-
see bold
Assessment / Plan
Assessment / Plan
A/P:
Initially suspected sepsis present on admission with end organ damage with hyperbilirubinemia (bilirubin at 2.5) but unclear source:
Blood cultures with CoNS
ID consult appreciated--> ID recommended to keep on oral Augmentin for 7 days through 07/02
No need for LP
General surgery consulted initially and Dr. Dick reached out to them on 06/25 to reevaluate him since he was more alert and can consent if needed. Surgery felt no need for surgical intervention.
PT OT - rec SNF, [facility] rec soft/bite sized w/ thin liq
Dr. Dick updated [id number] prior
Discharge to short-term rehab when bed available
Hyponatremia:
Sodium 128
Urine osmolarity 813 and urine sodium 110 consistent with SIADH.
Continue oral fluid restriction and salt tablets.
Trend sodium
Leukocytosis:
This could be reactive versus infectious
Continue to trend
Acute toxic-metabolic encephalopathy:
Improving but on and off
Likely multifactorial, infection, Parkinson's, and medications
Monitor mental status
Skin:
R cheek with unstageable PI
B/L knee with PI-->R knee unstageable. L knee with evolving DTI.
R lateral heel with DTI
Sacral wound
Offloading, continue pain medications as needed
Hypoxia:
Resolved
Chest x-ray no acute chest pathology
Monitor respiratory status closely
Hypokalemia:
Repleted and trend
Rhabdomyolysis, nontraumatic:
Off IV fluids
CPK 1295 upon admission--> 205 last time checked
Paroxysmal A-fib:
Not on anticoagulation prior to admission
History of ablation in the past
Continue oral Toprol-XL
Advanced Parkinson's disease:
Neurology consult appreciated, patient now consistently tolerating his Sinemet, rotigotine transdermal discontinued 06/29
Neurology recommends palliative care
DVT prophylaxis: Subcu Lovenox
Full code
Total time spent to see the patient on the floor, examine the patient, review data and lab results, discuss treatment plan with patient, nursing staff around 38 minutes.
Physical exam:
General: Appears chronically ill, no acute distress
HEENT: Normocephalic, Atraumatic and Dry Mucous Membranes
Respiratory: Clear to Auscultation; Negative Wheezes, Rales or Rhonchi
Cardiac: Regular Rhythm and S1/S2
GI: Soft, Nontender and Nondistended
Musculoskeletal: No joint effusions
Skin: Large sacral decubitus ulcer, multiple other ulcers on his trunk, right maxillary region, left xiphoid area, right lower chest wall, and knees.
Neuro: Alert oriented, does fall asleep easily though after answering questions, no gross neurological deficit, increased tone and bradykinesia.
Anticipated Discharge: Within 24 hours
Subjective/Interval History
-
Date of Service: June 30, 2025
Patient sleeping when seen. He did wake up, and answered a few questions, with a soft voice. Denies pain, denies shortness of breath. No fever, no vomiting.
Objective Data
-
Labs:
Laboratory Results
06/30/25
06:27
WBC 13.2 H
Hgb 10.4 L
Hct 31.2 L
Plt Count 340
Sodium 133 L
Potassium 4.1
Chloride 102
Carbon Dioxide 28
BUN 11
Creatinine 0.7
Glucose 92
Calcium 8.1 L
Vital Signs:
Vital Signs
Temp Pulse Resp BP Pulse Ox
98.0 F 63 16 122/70 94
11/11/25 07:30 06/30/25 07:50 06/30/25 07:30 06/30/25 07:50 06/30/25 07:30
I&O
06/29/25 06/30/25 07/01/25
06:59 06:59 06:59
Intake Total 2640 / 2640 720 / 720
Output Total 2850 / 2850 2600 / 2600
Balance -210 / -210 -1880 / -1880
--- NOTE | 2025-06-30 10:37 | W.PN.ID1 ---
Date of Service
Date of Service: June 30, 2025
Today's Communication
c/w augmentin for a 7 day course 06/26-07/02
Assessment / Plan
Fever - resolved
Contaminated blood culture - CONS pseudobacteremia
Rhabdomyolysis
Encephalopathy - resolved
Sacral Decubitus Ulcer
- blood cultures 1 set with CONS most likely a contaminant
- repeat blood cultures x2 finalized negative
- importance of offloading of the sacral wound rediscussed with patient 06/30; he is compliant with offloading
- follow up with wound care
- c/w augmentin for a 7 day course 06/26-07/02
Chief Complaint
-: Bacteremia
Subjective / Review of Systems
afebrile
bp stable
tolerating current therapies
no complaints
Vital Signs / Physical Exam
Vital Signs
Vital Signs
Temp Pulse Resp BP Pulse Ox
98.0 F 63 16 122/70 94
06/30/25 07:30 06/30/25 07:50 06/30/25 07:30 06/30/25 07:50 06/30/25 07:30
Physical Exam
Constitutional: No Acute Distress
Cardiovascular: Regular Rate and S1/S2; Negative Murmur or Rub
Pulmonary: Clear and Symmetric; Negative Wheezes or Rales
Gastrointestinal: Soft, Non Tender, Non Distended and Normal Bowel Sounds
Skin: Warm and Dry; Negative Rash or Jaundice
Objective Data
Lab Data
Lab Results
06/30/25 06:27
06/30/25 06:27
PT 17.7 Sec (11.4-14.6) H 06/24/25 05:21
INR 1.43 06/24/25 05:21
Estimated Creat Clear 90 ml/min 06/30/25 06:27
Lactic Acid 1.2 mmol/L (0.7-2.0) 06/22/25 22:02
Total Bilirubin 1.2 mg/dl (0.2-1.3) 06/24/25 05:21
AST 49 U/L (17-59) 06/24/25 05:21
ALT 25 U/L (0-50) 06/24/25 05:21
Alkaline Phosphatase 59 U/L (38-126) 06/24/25 05:21
Most recent labs reviewed.
Micro Results:
06/22/25 22:02 Blood Culture - Final
Blood/Venous Coagulase neg. staphylococcus
Additional testing on request
Gram Stain - Final
06/24/25 13:07 Blood Culture - Final
Blood/Venous No Growth - Final Report
06/24/25 12:39 Blood Culture - Final
Blood/Venous No Growth - Final Report
06/22/25 22:02 Blood Culture - Final
Blood/Venous No Growth - Final Report
06/23/25 23:19 MRSA Screen - Final
Nose No Methicillin Resistant Staphylococcus aureus isolated.
06/22/25 19:29 Urine Culture - Final
Urine No Significant Growth
06/22/25 22:28 Influenza Types A & B (JOSEF) - Final
Nasal Swab Negative for Influenza A & B, NAAT
Negative results must be combined with clinical observations
and patient history.
Nucleic Acid Amplification test (NAAT)performed on the
[employer] platform.
Care Review
Plan reviewed with: Physician (Dr Shaw - offloading)
--- NOTE | 2025-06-30 13:30 | WOUNDNOTE ---
WON RN NOTE: Nurse reports that patient refusing fiber filled offloading heel boots. Spoke to patient at bedside and agreeable to try R heel offloading boot where wound is located. L heel offload with pillow. Air refilled in air overlay, palm check
done, turning schedule in effect. Applied Vaseline to chest eschar and L posterior back and shoulder where he reports feeling itchy. Patient states his appetite is improving. Nurse Karen aware of the above and recommended may need new overlay if
keeps deflating. Will follow as needed.
--- NOTE | 2025-06-30 15:21 | PN.CDI ---
CDI
- -
CDI:
Physician Documentation Request
Admit Date: 06/22/25 22:46
Dear Do
Sepsis without organ dysfunction is no longer used within our health system. These cases are now coded as the primary infection, not as sepsis.
[facility] is using an adapted version of the 2016 Third International Consensus Definitions for Sepsis and Septic Shock (Sepsis-3) where sepsis is defined as life threatening organ dysfunction caused by a deregulated host response to infection.
Please reference the official [facility] Sepsis Recognition Tool for further information, which is available on the Intranet under Infection Prevention.
Clinical Indicators Include:
Progress Notes: Initially suspected sepsis present on admission with end organ damage with hyperbilirubinemia (bilirubin at 2.5) but unclear source:
Treatment: ID recommended to keep on oral Augmentin for 7 days since 06/26, through 07/03
Based on your medical judgment, please review the documentation pertaining to Sepsis due to (Enter infection) and further clarify the clinical indicators and any organ dysfunction associated with the diagnosis, if applicable:
� Sepsis ruled out,
� Sepsis due to (list infection) with organ dysfunction of hyperbilirubinemia
� Other
� Clinically Unable to Determine
Use of terms such as suspected, likely, concern for, or probable (associated with a specific diagnosis that is being evaluated, monitored, or treated as if it exists) are acceptable and can be coded in the inpatient setting when documented at the
time of discharge.
Please use your independent medical judgement in providing your response.
Thank you,
Tania Covarrubias RN, BSN
CDI Specialist
tiger text
--- NOTE | 2025-06-30 15:35 | CM ---
Addendum entered by Reba Zuleta 06/30/25 16:32:
Auth certified in total on [employer] Auth #[id number] 7 days 07/02-07/08. Update to liaison.
Addendum entered by Reba Zuleta 06/30/25 15:37:
CM will call to start auth with [employer].
Original Note:
Bed available for patient at [facility] pending discharge from physician. CM will continue to follow for discharge planning needs.
Plan; SNF; [facility]
[2025-06-30 16:00] VITALS: BP 111/67
[2025-06-30] MEDS: LOVENOX 40 MG SC (17:10)
[2025-06-30 23:00] VITALS: BP 104/67
[2025-07-01] MEDS: SINEMET 25-100 3 TABLET PO ×6 (06:25→20:48)
[2025-07-01 06:43] LABS: Hematocrit 33.7 % (39.0-52.0); Hemoglobin 10.9 g/dL (13.0-18.0); Mean Corp Hgb Conc. 32.3 g/dL (33.0-37.0); Mean Corpuscular Volume 93.1 fL (80.0-94.0); Platelet Count 356 10^3/uL (130-400); Red Cell Dist. Width 13.9 % (11.5-14.5)
[2025-07-01 07:08] LABS: Blood Urea Nitrogen 10 mg/dl (9-20); Calcium 8.4 mg/dl (8.4-10.2); Carbon Dioxide 30 mmol/L (22-30); Chloride 103 mmol/L (98-107); Estimated Creatinine Clearance 90 ml/min; Glucose 91 mg/dl (70-99); Potassium 4.5 mmol/L (3.5-5.1); Sodium 132 mmol/L (135-145); eGFR > 60.00
[2025-07-01 08:22] VITALS: BP 148/88
[2025-07-01] MEDS: SODIUM CHLORIDE 1 GRAM PO ×2 (08:41→20:47)
[2025-07-01] MEDS: AUGMENTIN 875 MG/125 MG 1 TABLET PO ×2 (08:41→20:44)
[2025-07-01] MEDS: DAKIN'S SOLUTION 0.125% 1/4 STRENGTH TOPICAL (08:41)
[2025-07-01] MEDS: COZAAR 25 MG PO (08:42)
[2025-07-01] MEDS: TOPROL XL 25 MG PO (08:43)
[2025-07-01] MEDS: DESENEX/MITRAZOL/ZEASORB 1 APPLIC TOPICAL ×2 (08:43→20:46)
--- NOTE | 2025-07-01 09:13 | W.PN.HOSP.TC ---
Today's Communication/Plan
-
Discharge to [facility] tomorrow
Assessment / Plan
Assessment / Plan
A/P:
Fever (sepsis ruled out):
Blood cultures with CoNS
ID consult appreciated--> ID recommended to keep on oral Augmentin for 7 days through 07/02
No need for LP
General surgery consulted initially and Dr. Dick reached out to them on 06/25 to reevaluate him since he was more alert and can consent if needed. Surgery felt no need for surgical intervention.
PT OT - rec SNF, [facility] rec soft/bite sized w/ thin liq
Dr. Dick updated [id number] prior
Discharge to short-term rehab when bed available
Hyponatremia:
Sodium 132 today, was 128
Urine osmolarity 813 and urine sodium 110 consistent with SIADH.
Continue oral fluid restriction and salt tablets.
Trend sodium
Leukocytosis:
This could be reactive versus infectious
Continue to trend
Acute toxic-metabolic encephalopathy:
Improving but on and off
Likely multifactorial, infection, Parkinson's, and medications
Monitor mental status
Skin:
R cheek with unstageable PI
B/L knee with PI-->R knee unstageable. L knee with evolving DTI.
R lateral heel with DTI
Sacral wound
Offloading, continue pain medications as needed
Hypoxia:
Resolved
Chest x-ray no acute chest pathology
Monitor respiratory status closely
Hypokalemia:
Repleted and trend
Rhabdomyolysis, nontraumatic:
Off IV fluids
CPK 1295 upon admission--> 205 last time checked
Paroxysmal A-fib:
Not on anticoagulation prior to admission
History of ablation in the past
Continue oral Toprol-XL
Advanced Parkinson's disease:
Neurology consult appreciated, patient now consistently tolerating his Sinemet, rotigotine transdermal discontinued 06/29
Neurology recommends palliative care
DVT prophylaxis: Subcu Lovenox
Full code
Total time spent to see the patient on the floor, examine the patient, review data and lab results, discuss treatment plan with patient, nursing staff around 35 minutes.
Physical exam:
General: Appears chronically ill, no acute distress
HEENT: Normocephalic, Atraumatic and Dry Mucous Membranes
Respiratory: Clear to Auscultation; Negative Wheezes, Rales or Rhonchi
Cardiac: Regular Rhythm and S1/S2
GI: Soft, Nontender and Nondistended
Musculoskeletal: No joint effusions
Skin: Large sacral decubitus ulcer, multiple other ulcers on his trunk, right maxillary region, left xiphoid area, right lower chest wall, and knees.
Neuro: Alert oriented, does fall asleep easily though after answering questions, no gross neurological deficit, increased tone and bradykinesia.
Anticipated Discharge: Within 24 hours
Subjective/Interval History
-
Date of Service: June 30, 2025
Patient is more alert and awake today. Denies chest pain, denies shortness of breath. No fever, no vomiting. He is tolerating his diet.
Objective Data
-
Labs:
Laboratory Results
06/30/25
06:27
WBC 13.2 H
Hgb 10.4 L
Hct 31.2 L
Plt Count 340
Sodium 133 L
Potassium 4.1
Chloride 102
Carbon Dioxide 28
BUN 11
Creatinine 0.7
Glucose 92
Calcium 8.1 L
Vital Signs:
Vital Signs
Temp Pulse Resp BP Pulse Ox
98.0 F 63 16 122/70 94
06/30/25 07:30 06/30/25 07:50 06/30/25 07:30 06/30/25 07:50 06/30/25 07:30
I&O
1106/30/25 07/01/25
06:59 06:59 06:59
Intake Total 2640 / 2640 720 / 720
Output Total 2850 / 2850 2600 / 2600
Balance -210 / -210 -1879 / -1879
--- NOTE | 2025-07-01 10:10 | CM ---
patient seen at bedside
Auth Approved for [facility]
Auth approval #: [id number]
START 07/02/25 to 07/08/25
fax updates to [phone]
Auth information given to [facility] liaison
spoke with patient & agreeable
updated careport
IMM explained & signed. In chart
LM with Bother in law Riley (contact)
PLAN: [facility] 07/02
REPORT #: [phone]
FAX #: [phone]
TRANSPORTATION FORMS ON CHART
[2025-07-01] MEDS: SINEMET 25-100 PO (14:42)
--- NOTE | 2025-07-01 14:56 | W.PN.ID1 ---
Date of Service
Date of Service: July 01, 2025
Today's Communication
- follow up with wound care
- c/w augmentin for a 7 day course 06/26-07/02
ID service will no longer actively follow this patient please recall for further questions
Assessment / Plan
Sacral Decubitus Ulcer
Fever - resolved
Contaminated blood culture - CONS pseudobacteremia
Rhabdomyolysis
Encephalopathy - resolved
- blood cultures 1 set with CONS most likely a contaminant
- repeat blood cultures x2 finalized negative
- importance of offloading of the sacral wound rediscussed with patient 06/30; he is compliant with offloading
- follow up with wound care
- c/w augmentin for a 7 day course 06/26-07/02
ID service will no longer actively follow this patient please recall for further questions
Chief Complaint
-: Bacteremia
Subjective / Review of Systems
afebrile
bp stable
no pain reported to hosptiatlist
patient is not responding to my questions this afternoon
Vital Signs / Physical Exam
Vital Signs
Vital Signs
Temp Pulse Resp BP Pulse Ox
97.7 F 67 16 148/88 99
07/01/25 08:22 07/01/25 08:43 07/01/25 08:22 07/01/25 08:43 07/01/25 08:22
Physical Exam
Constitutional: No Acute Distress
Cardiovascular: Regular Rate and S1/S2; Negative Murmur or Rub
Pulmonary: Clear and Symmetric; Negative Wheezes or Rales
Gastrointestinal: Soft, Non Tender, Non Distended and Normal Bowel Sounds
Skin: Warm, Dry and Other (sacral eschar forming remains soft without fluctuance, no surrounding erythema); Negative Rash or Jaundice
Objective Data
Lab Data
Lab Results
07/01/25 06:07
07/01/25 06:07
PT 17.7 Sec (11.4-14.6) H 06/24/25 05:21
INR 1.43 06/24/25 05:21
Estimated Creat Clear 90 ml/min 07/01/25 06:07
Lactic Acid 1.2 mmol/L (0.7-2.0) 06/22/25 22:02
Total Bilirubin 1.2 mg/dl (0.2-1.3) 06/24/25 05:21
AST 49 U/L (17-59) 06/24/25 05:21
ALT 25 U/L (0-50) 06/24/25 05:21
Alkaline Phosphatase 59 U/L (38-126) 06/24/25 05:21
Most recent labs reviewed.
Micro Results:
06/22/25 22:02 Blood Culture - Final
Blood/Venous Coagulase neg. staphylococcus
Additional testing on request
Gram Stain - Final
06/24/25 13:07 Blood Culture - Final
Blood/Venous No Growth - Final Report
06/24/25 12:39 Blood Culture - Final
Blood/Venous No Growth - Final Report
06/22/25 22:02 Blood Culture - Final
Blood/Venous No Growth - Final Report
06/23/25 23:19 MRSA Screen - Final
Nose No Methicillin Resistant Staphylococcus aureus isolated.
06/22/25 19:29 Urine Culture - Final
Urine No Significant Growth
06/22/25 22:28 Influenza Types A & B ([facility]) - Final
Nasal Swab Negative for Influenza A & B, NAAT
Negative results must be combined with clinical observations
and patient history.
Nucleic Acid Amplification test (NAAT)performed on the
[employer] platform.
[2025-07-01 15:52] VITALS: BP 110/63; PULSE 71; O2SAT 97
[2025-07-01 15:54] VITALS: BP 110/63; PULSE 71; O2SAT 97
[2025-07-01 16:00] VITALS: BP 120/70
[2025-07-01] MEDS: DAKIN'S SOLUTION 0.125% 1/4 STRENGTH 100 ML TOPICAL (16:16)
[2025-07-01] MEDS: LOVENOX 40 MG SC (17:55)
[2025-07-01 23:40] VITALS: BP 112/63
[2025-07-02] MEDS: SINEMET 25-100 3 TABLET PO ×3 (06:23→13:20)
[2025-07-02 06:42] LABS: Blood Urea Nitrogen 8 mg/dl (9-20); Calcium 8.0 mg/dl (8.4-10.2); Carbon Dioxide 28 mmol/L (22-30); Chloride 103 mmol/L (98-107); Estimated Creatinine Clearance 105 ml/min; Glucose 102 mg/dl (70-99); Potassium 4.1 mmol/L (3.5-5.1); Sodium 134 mmol/L (135-145); eGFR > 60.00
[2025-07-02] MEDS: SODIUM CHLORIDE 1 GRAM PO (07:42)
[2025-07-02] MEDS: AUGMENTIN 875 MG/125 MG 1 TABLET PO (07:52)
[2025-07-02] MEDS: TOPROL XL 25 MG PO (07:52)
[2025-07-02] MEDS: COZAAR PO (07:57)
[2025-07-02] MEDS: DESENEX/MITRAZOL/ZEASORB 1 APPLIC TOPICAL (07:58)
[2025-07-02] MEDS: DAKIN'S SOLUTION 0.125% 1/4 STRENGTH 473 ML TOPICAL (07:58)
[2025-07-02 08:06] VITALS: BP 146/86
--- NOTE | 2025-07-02 08:16 | W.PN.HOSP.TC ---
Today's Communication/Plan
-
Discharge to [facility] today
Assessment / Plan
Assessment / Plan
A/P:
Fever (sepsis ruled out):
Blood cultures with CoNS
ID consult appreciated--> ID recommended to keep on oral Augmentin for 7 days through 07/02
No need for LP
General surgery consulted initially and Dr. Dick reached out to them on 06/25 to reevaluate him since he was more alert and can consent if needed. Surgery felt no need for surgical intervention.
PT OT - rec SNF, SPL rec soft/bite sized w/ thin liq
Dr. Dick updated [id number] prior
Discharge to short-term rehab when bed available
Hyponatremia:
Sodium 132 today, was 128
Urine osmolarity 813 and urine sodium 110 consistent with SIADH.
Continue oral fluid restriction and salt tablets.
Trend sodium
Leukocytosis:
This could be reactive versus infectious
Continue to trend
Acute toxic-metabolic encephalopathy:
Improving but on and off
Likely multifactorial, infection, Parkinson's, and medications
Monitor mental status
Skin:
R cheek with unstageable PI
B/L knee with PI-->R knee unstageable. L knee with evolving DTI.
R lateral heel with DTI
Sacral wound
Offloading, continue pain medications as needed
Hypoxia:
Resolved
Chest x-ray no acute chest pathology
Monitor respiratory status closely
Hypokalemia:
Repleted and trend
Rhabdomyolysis, nontraumatic:
Off IV fluids
CPK 1295 upon admission--> 205 last time checked
Paroxysmal A-fib:
Not on anticoagulation prior to admission
History of ablation in the past
Continue oral Toprol-XL
Advanced Parkinson's disease:
Neurology consult appreciated, patient now consistently tolerating his Sinemet, rotigotine transdermal discontinued 06/29
Neurology recommends palliative care
DVT prophylaxis: Subcu Lovenox
Full code
Physical exam:
General: Appears chronically ill, no acute distress
HEENT: Normocephalic, Atraumatic
Respiratory: Clear to Auscultation; Negative Wheezes, Rales or Rhonchi
Cardiac: Regular Rhythm and S1/S2
GI: Soft, Nontender and Nondistended
Musculoskeletal: No joint effusions
Skin: Large sacral decubitus ulcer, multiple other ulcers on his trunk, right maxillary region, left xiphoid area, right lower chest wall, and knees.
Neuro: Alert oriented, does fall asleep easily though after answering questions, no gross neurological deficit, increased tone and bradykinesia.
Anticipated Discharge: Today
Subjective/Interval History
-
Date of Service: July 02, 2025
Patient alert and awake today. He denies chest pain, denies shortness of breath. He is tolerating his diet, denies choking. No fever, no vomiting.
Objective Data
-
Labs:
Laboratory Results
07/02/25
05:44
WBC Pending
Hgb Pending
Hct Pending
Plt Count Pending
Sodium 134 L
Potassium 4.1
Chloride 103
Carbon Dioxide 28
BUN 8 L
Creatinine 0.6 L
Glucose 102 H
Calcium 8.0 L
Vital Signs:
Vital Signs
Temp Pulse Resp BP Pulse Ox
98.6 F 73 16 146/86 96
07/02/25 08:06 07/02/25 08:06 07/02/25 08:06 07/02/25 08:06 07/02/25 08:06
I&O
07/01/25 07/02/25 07/03/25
06:59 06:59 06:59
Intake Total 960 / 960 880 / 880
Output Total 1800 / 1800 1000 / 1000
Balance -840 / -840 -120 / -120
--- NOTE | 2025-07-02 08:39 | CM ---
Addendum entered by Meghan Torrez 07/02/25 11:15:
1:30 transport set, [facility] updated
gave auth info again to Evita
Original Note:
Auth Approved for [facility] today
Auth approval #: [id number]
START 07/02/25 to 07/08/25
fax updates to [phone]
IMM explained & signed. In chart
careport updated
LM with Bother in law Riley yesterday(contact)
PLAN: [facility] 07/02
REPORT #: [phone]
FAX #: [phone]
TRANSPORTATION FORMS ON CHART
[2025-07-02 08:57] LABS: Hematocrit 33.4 % (39.0-52.0); Hemoglobin 10.8 g/dL (13.0-18.0); Mean Corp Hgb Conc. 32.3 g/dL (33.0-37.0); Mean Corpuscular Volume 92.5 fL (80.0-94.0); Platelet Count 386 10^3/uL (130-400); Red Cell Dist. Width 13.7 % (11.5-14.5)
--- NOTE | 2025-07-02 10:20 | W.DCSUMMARY ---
Discharge Summary
Discharge Data
Date of Admission: 06/22/25
Date of Discharge: 07/02/25
-
Pending Results: No
Hospital Course
Discharge diagnosis:
Fever
Leukocytosis
Contaminated blood cultures
Hyponatremia
Acute toxic metabolic encephalopathy
Sacral wound
Right lateral heel deep tissue injury
Bilateral knee deep tissue injury
Transient hypoxia
Hypokalemia
Nontraumatic rhabdomyolysis
Paroxysmal atrial fibrillation not on anticoagulation
Advanced Parkinson's disease
Consults: Neurology, ID, general surgery
Pelvis MRI:
There are no MR findings to suggest osteomyelitis.
Posteriorly at the level of the lower sacrum and coccyx, there is a focal region of loss of enhancement of the medial gluteus maria g muscles bilaterally as well as loss of enhancement of the overlying subcutaneous soft tissues. These findings would
suggest devitalized soft tissues.
No evidence for abscess.
Subcutaneous edema.
Edema within the musculature of both proximal thighs, left greater than right, likely representing myositis.
Head CT:
1. No CT evidence for acute intracranial hemorrhage or transcortical infarct.
2. Mild diffuse cerebral and cerebellar volume loss.
3. Mild periventricular white matter leukoaraiosis in the frontal and parietal lobes
Hospital course:
64-year-old male with a past medical history of Parkinson's disease, hypertension, and atrial fibrillation not on anticoagulation who presented with falls, was found to have rhabdomyolysis, fever, leukocytosis, and acute toxic metabolic
encephalopathy.
Patient received IV fluids for his rhabdomyolysis, his CK normalized.
For his fever and leukocytosis, he was seen in conjunction with ID. He received IV antibiotics. 1 blood culture grew out Coag neg herminiah, ID states that it is a contaminant. No infectious source was identified. His antibiotics were discontinued.
Patient spiked a fever again. ID resumed antibiotics with Augmentin 875 over 125 mg twice a day, and recommends continuing from 06/26/25 - 07/02/25 for a 7-day course. Patient's fever resolved, he did not have any recurrence of fever.
Patient has a sacral wound, and several deep tissue injuries of the right lateral heel and bilateral knees. Patient was seen in conjunction with general surgery, who recommended local wound care, offloading, and maximizing nutritional therapy. No
surgical debridement was recommended.
Patient has hyponatremia. He was treated with fluid restriction and salt tablets. He can will be discharged on a fluid restriction and sodium chloride 1 g p.o. daily. He needs to have a repeat BMP at the nursing facility on 07/06/2025.
For his acute toxic metabolic encephalopathy and his Parkinson's disease, he was seen in conjunction with neurology. He was started on rotigotine transdermal. His mentation returned to baseline, he tolerated his usual doses of Sinemet. The
rotigotine transdermal patch was discontinued. Neurology states that patient's Parkinson's disease is severe, and recommends palliative care.
Patient's multiple medical conditions have been optimized. He is medically stable for discharge to short-term rehab. He needs to follow-up with his PCP 1 week after he leaves rehab.
Disposition: Short-term rehab
Discharge planning: Required 37 minutes
Discharge Plan
-
Patient Disposition: Long Term/SNF
Discharge Diagnosis/Procedures: Fever, confusion, hyponatremia, sacral wound, rhabdomyolysis, hypokalemia, transient hypoxia, paroxysmal atrial fibrillation not on anticoagulation, Parkinson's disease
Condition: Fair
Diet: Restrict fluids to 48 oz
Activity: As tolerated
Blood Work: BMP on 06/05/25
Activity Restrictions/Additional Instructions:
Patient has a sacral wound, and needs to be turned on his left/right side every 2 hours for offloading.
Please take amoxicillin�clavulanate 1 tab twice a day for 1 more day.
Patient has low sodium.
Please adhere to a 48 ounce fluid restriction and take your sodium chloride tablets as directed.
Please follow-up with the primary care provider at the rehab in less than 1 week.
Wound Care Instructions
Sacrum: clean with dakin's, skin prep periwound, Dakin's moist gauze, folded ABD pad and secure with silicone tape, change daily and prn soilage.
R knee: clean with dakin's, silicone foam change q other day and prn drainage
L knee: open to air, if starts to drain then apply silicone foam and change q other day.
Chest and abdomen: clean with soap and water, apply vaseline daily.
R heel: clean with saline, silicone foam change q other day and prn drainage
L heel: skin prep and adhesive foam change q 3 days and prn soilage.
Skin folds: fungal powder bid after cleaning with soap and water
Air mattress with turning schedule
offloading heel boots when in bed
offloading cushion when sitting (ROHO cushion) recommend limit sitting to meals only.
Follow up at wound care center call for an appointment.
Referrals:
Loco Lynch MD [Family Provider, Family Practice] - in one week
Prescriptions:
New
miconazole nitrate [Miconazorb AF] 2 % Powder
1 applic topical BID Qty: 0 0RF
amoxicillin-pot clavulanate 875-125 mg Tablet
1 tab PO Q12 1 Days Qty: 2 0RF
oxycodone 5 mg Tablet
5 mg PO Q4HPRN PRN (Reason: moderate pain) Qty: 3 0RF
sodium chloride 1,000 mg Tablet,Soluble
1,000 mg PO DAILY Qty: 0 0RF
Dakin's Solution 0.125 % Solution
1 applic topical DAILY Qty: 0 0RF
Continued
carbidopa-levodopa 25-100 mg tablet
3 tab PO TID@0600,0900,1200
carbidopa-levodopa 25-100 mg tablet
3 tab PO TID@1500,1800,2100
losartan 25 mg Tablet
25 mg PO DAILY
metoprolol succinate [Toprol XL] 25 mg Tablet Extended Release 24 Hr
25 mg PO DAILY
Discontinued
hydralazine 25 mg Tablet
25 mg PO TIDPRN PRN (Reason: blood pressure)
Discharge Orders:
Discharge Patient (As Directed); Ordered 07/02/25
Ordered By: Dakota Shaw
Discharge Date and Time
Discharge Date/Time: 07/02/25 13:41
Print Language: BOLIVIAN
[2025-07-02 13:30] VITALS: BP 144/88
== END 2025-07-02 13:41 | DRG 92 ==
LOC: 3 WEST ACU 22:46
PROVIDERS: Hospitalist; Radiology Vascular & Interventional Radiology; ADMITTING PHYSICIAN Hospitalist; ATTENDING PHYSICIAN Family Medicine; CONSULT PHYSICIAN Psychiatry & Neurology Neurology; CONSULT PHYSICIAN Surgery; EMERGENCY PHYSICIAN Emergency Medicine; FAMILY PHYSICIAN Family Medicine; OTHER PHYSICIAN Student in an Organized Health Care Education/Training Program
DX: G92.8 Other toxic encephalopathy (principal); E22.2 Syndrome of inappropriate secretion of antidiuretic hormone; M62.82 Rhabdomyolysis; G20.A1 Parkinson's disease without dyskinesia, without mention of fluctuations; Z51.5 Encounter for palliative care; E87.6 Hypokalemia; I48.0 Paroxysmal atrial fibrillation; L89.150 Pressure ulcer of sacral region, unstageable; G89.29 Other chronic pain; I10 Essential (primary) hypertension; Z11.52 Encounter for screening for COVID-19
CPT/HCPCS: 70450; 71045; 72197; 80048; 80053; 81003; 81015; 82248; 82533; 82550; 82570; 82805; 83605; 83735; 83930; 83935; 84300; 84443; 85025; 85027; 85610; 87040; 87070; 87086; 87147; 87154; 87205; 87502; 87811; 92526; 92610; 93005; 96360; 96361; 97110; 97112; 97163; 97167; 97530; 97535; 99291; A9575

== ENCOUNTER 2025-08-09 19:04 | Emergency (ER) | payer OTHER, SELFPAY ==
[2025-08-09 19:08] VITALS: BP 104/73
[2025-08-09 19:09] VITALS: BMI 22.8
[2025-08-09 20:00] VITALS: BP 117/76
[2025-08-09 20:46] LABS: Urine Character Cloudy (Clear)
[2025-08-09 20:58] LABS: Urine Squamous Cell 0-2 /LPF (Few); Urine White Cell >100 /HPF (0-5)
[2025-08-09 22:10] VITALS: BP 133/86
[2025-08-09 23:00] VITALS: BP 116/82
--- NOTE | 2025-08-09 23:37 | ED.GENMED ---
History of Present Illness
General
Chief Complaint: Catheter/Tube Problem
Source: patient, ambulance crew, retirement and previous hospital records (Hospitalization here June 22 to .)
Exam Limitations: none
Time Seen by Provider: 08/09/25 22:48
Nursing documentation reviewed up to this point in time: agreed with
History of Present Illness
History of Present Illness:
This is a 64-year-old gentleman with history of advanced Parkinson's disease, chronically bedbound, recently hospitalized here June 22 to July 02 for treatment of acute toxic metabolic encephalopathy, fever, leukocytosis. Noted to have
sacral decubitus as well as right lateral heel and bilateral knee deep tissue injuries. 1 positive blood culture appear to be contaminant. He was discharged from this hospital to a local retirement for continued care home care.
He presents from the retirement with concern for severe lower abdominal pain that began while removing Wagner catheter. There was report of large amount of thick yellow urinary sediment and nursing staff unable to replace Wagner catheter. There
has been no reported fever. No cough no shortness of breath.
Unclear as to when Wagner catheter was inserted. The patient did not require Wagner catheter during hospitalization 1 month ago.
Patient himself is unsure as to when Wagner catheter was inserted nor unsure as to why. He does report some urethral and suprapubic discomfort that began 2 to 3 days ago, much worse tonight.
halfway transfer records reviewed. Recent hospitalization records reviewed.
Patient is DNR/DNI status.
Due to advanced Parkinson's disease, neurologist recommends palliative care.
ED nursing staff able to reinsert Wagner catheter with report of drainage of yellow cloudy urine, but upon doing so patient developed significant suprapubic as well as urethral discomfort that promptly resolved with removal of Wagner catheter.
Follow-up bladder scan reveals an empty bladder.
Since catheter has been removed, patient has remained pain-free and comfortable.
Past History
Past History
ED Past Medical History: Arrthythmia (PAF), HTN, Other (Parkinson's disease) and Other (chronic back pain)
ED Past Surgical History: Orthopedic ([id number] fusion, right shoulder rotator cuff repair June 2018)
Patient has exhibited threatening behavior?: No
Social History
Tobacco: Non-smoker
Alcohol: None
Drug: None
Personal:
Living: alone
Employment: Employed
Family History
Family History: Hypertension and Other (Father with pancreatic cancer mother with Parkinson's)
Phy Exam
Physical Exam
Physical Exam:
GENERAL: 64-year-old gentleman appears moderately chronically debilitated, chronically bedbound. He is awake and alert, oriented x 3, somewhat soft-spoken with minimally slow phonation but easily understandable. Overall in no acute distress.
Afebrile. Normotensive.
EYE: anicteric
NECK: Supple, nontender, no meningismus, no significant adenopathy.
ENT: oral mucosa is moist. No rhinorrhea. No palpable masses. Bladder is not palpably distended.
CARDIAC: Regular rate and rhythm. no murmur.
LUNGS: Clear breath sounds bilaterally, no acute respiratory distress, no wheezes/rales/rhonchi
ABDOMEN: Soft, nondistended, without focal tenderness, no r/g, no cvat. normoactive BS.
NEUROLOGICAL: Alert and oriented x3, mild generalized weakness all 4 extremities with moderate cogwheel rigidity of all 4 extremities.
SKIN: Warm and dry, minimally pale in color, fair turgor. Scabbed sloughing wound to left anterior chest wall. Sacral decubitus.
MUSCULOSKELETAL: No C/C/E. peripheral pulses are full and equal b/l. No palpable tenderness.
PSYCH: Moderately blunted affect. Cooperative.
Course
Orders/Labs/Results
Orders:
Orders
08/09/25 20:37
Urinalysis Reflex To Culture Urgent
Date Specimen was Collected: 08/09/25
Time Specimen was Collected: 20:19
Urine Microscopic Reflex Cult Urgent
Urine Culture Urgent
ALESHA Source: U
Specimen Description:
Date Specimen was Collected: 08/09/25
Time Specimen was Collected: 20:19
08/09/25 22:52
Phenazopyridine HCl [Pyridium] 200 mg PO NOW STA
08/09/25 23:44
Amoxicillin 875 mg/Clav 125 mg [Augmentin 875 mg/125 mg] 1 tablet PO NOW STA
Abnormal Lab Results
08/09/25
20:37
Urine Ketones 2+ A
(Negative)
Ur Occult Blood Reflex 4+ A
(Negative)
Leukocyte Esterase Rfl 3+ A
(Negative)
Urine WBC (Reflex) >100 A /HPF
(0-5)
Urine Bacteria (Reflex) Many A
(Negative)
Urine Albumin (Reflex) 3+ A
(Neg - Trace)
Vital Signs
Initial and Last Documented VS:
Initial Vital Signs
Temp Pulse Resp BP Pulse Ox
97.6 F 72 17 104/73 96
08/09/25 19:08 08/09/25 19:08 08/09/25 19:08 08/09/25 19:08 08/09/25 19:08
Last Documented Vital Signs
Temp Pulse Resp BP Pulse Ox
97.6 F 69 19 116/82 93
08/09/25 19:08 08/09/25 23:15 08/09/25 23:15 08/09/25 23:00 08/09/25 23:44
MDM/Problems Addressed
Differential Diagnosis Includes:
DIFFERENTIAL DIAGNOSIS
The Differential Diagnosis includes, in no particular order and is not limited to:
1. Urinary tract infection
2. Catheter-associated urinary tract infection
3. Bladder irritation or inflammation
4. Urethritis
5. Interstitial cystitis
6. Benign prostatic hyperplasia
7. Bladder stones
8. Prostatitis
9. Pyelonephritis
10. Urinary retention
MDM/Problems Addressed:
Acute urethral discomfort, suprapubic pain after Wagner catheter removed. Recurrent pain with
Reinsertion of Wagner catheter.
Patient remains afebrile. Hemodynamically stable.
Moderately chronically debilitated but overall appears to be at his baseline.
Urinalysis consistent with UTI
Follow-up bladder scan reveals minimal urine within the bladder.
Highly suspect catheter associated UTI. Reassuring that patient remains afebrile, hemodynamically stable and since catheter has been removed, abdomen is soft without appreciable tenderness.
Urine culture is pending.
Will initiate a course of Augmentin for treatment of UTI and at this point recommend to hold discontinue Wagner catheter and monitor for bladder outlet obstruction with as needed bladder scan and if unable to void or element of urinary retention
would recommend intermittent straight cath procedures with avoidance of indwelling Wagner catheter.
He has been given a dose of Pyridium for urethral/bladder wall discomfort.
At this point no indication for imaging nor laboratory studies.
Will discharge back to retirement for continued care.
Chronic conditions affecting care: Neurological disorder
*Pulse Oximetry
SaO2: 93
Oxygen Mode of Delivery: Room air
Patient hypoxic: no
*Critical Care Note
Total Time (30-74mins, 75-104mins- exclusive of procedures): Not Applicable
Data Reviewed
Review of Other/Old Records Reveals: Labs, Records, Progress Notes and Discharge Summary
Source: ambulance crew, retirement and previous hospital records
ED Attending Note
-
Portions of this chart may have been created with voice recognition software.� Occasional wrong word or��sound alike� substitutions may have occurred due to the inherent limitations of voice recognition software.
Discharge Plan
Departure
Patient Disposition: [facility]ci/SNF
Date of Disposition: 08/09/25
Time of Disposition: 23:51
Discharge Problem:
Catheter-associated urinary tract infection, Encounter for Wagner catheter removal
Instructions: Urinary Tract Infection - Men
Prescriptions:
New
amoxicillin-pot clavulanate 875-125 mg tablet
1 tab PO BID Qty: 14 0RF
phenazopyridine [Pyridium] 200 mg tablet
200 mg PO TID PRN (Reason: bladder pain) 3 Days Qty: 9 0RF
No Action
carbidopa-levodopa 25-100 mg tablet
3 tab PO TID@0600,0900,1200
carbidopa-levodopa 25-100 mg tablet
3 tab PO TID@1500,1800,2100
losartan 25 mg Tablet
25 mg PO DAILY
metoprolol succinate [Toprol XL] 25 mg Tablet Extended Release 24 Hr
25 mg PO DAILY
miconazole nitrate [Miconazorb AF] 2 % Powder
1 applic topical BID Qty: 0 0RF
amoxicillin-pot clavulanate 875-125 mg Tablet
1 tab PO Q12 1 Days Qty: 2 0RF
oxycodone 5 mg Tablet
5 mg PO Q4HPRN PRN (Reason: moderate pain) Qty: 3 0RF
sodium chloride 1,000 mg Tablet,Soluble
1,000 mg PO DAILY Qty: 0 0RF
Dakin's Solution 0.125 % Solution
1 applic topical DAILY Qty: 0 0RF
Referrals:
Loco Lynch MD [Family Provider, [facility]] - Call in 1-3 days for appt
Activity Restrictions/Additional Instructions:
Urinalysis is consistent with UTI; likely related to Wagner catheter.
Patient's discomfort has resolved with discontinuation of Wagner catheter and at this point recommend to avoid indwelling Wagner catheter and instead monitor for urinary retention with as needed bladder scan. If urinary retention occurs, recommend as
needed straight cath procedure.
A prescription for 1 week course of Augmentin has been provided as well as 3-day course of Pyridium.
A urine culture is pending.
Interventions
Interventions:
*General Assessment Last Done: 08/09/25 19:11
*Neglect/Abuse Screening Last Done: 08/09/25 19:13
*ED COVID-19 Vaccine History Last Done: 08/09/25 19:11
*ED Influenza Vaccine History Last Done: 08/09/25 19:11
[facility] Fall Risk Assessment Tool Last Done: 08/09/25 19:10
*Risk Screen - Suicide (C-SSRS) Last Done: 08/09/25 19:13
QA-Qezaun-Qsxevxhpdu Assessment Last Done: 08/09/25 19:14
ED-Male Genitourinary Assessment Last Done: 08/09/25 19:14
Discharge Date and Time
Print Language: SETSWANA
[2025-08-09] MEDS: AUGMENTIN 875 MG/125 MG 1 TABLET PO (23:52)
[2025-08-10] VITALS: BP 155/94
[2025-08-10 01:00] VITALS: BP 128/89
== END 2025-08-10 01:36 ==
LOC: EMR 19:04
PROVIDERS: Emergency Medicine; EMERGENCY PHYSICIAN Emergency Medicine; FAMILY PHYSICIAN Family Medicine
DX: N39.0 Urinary tract infection, site not specified (principal); T83.511A Infection and inflammatory reaction due to indwelling urethral catheter, initial encounter; Y73.2 Prosthetic and other implants, materials and accessory gastroenterology and urology devices associated with adverse incidents; G20.A1 Parkinson's disease without dyskinesia, without mention of fluctuations; I48.0 Paroxysmal atrial fibrillation; I10 Essential (primary) hypertension; L89.159 Pressure ulcer of sacral region, unspecified stage; M54.9 Dorsalgia, unspecified; G89.29 Other chronic pain; Z74.01 Bed confinement status; Z66 Do not resuscitate; Z82.49 Family history of ischemic heart disease and other diseases of the circulatory system; Z82.0 Family history of epilepsy and other diseases of the nervous system
CPT/HCPCS: 99283; 81003; 81015; 87077; 87086